=== PATIENT | female | born 1940 | race Caucasian/White ===

== ENCOUNTER → 2016-10-26 | Outpatient (REF) | payer MEDICARE, MEDICAID ==
[~2016-10-26] MED LIST: ATOR1TAB18 FT; CARD40TA FT; DIGO0.25 FT; DIOV80TA3 FT; DOCU5LIQ FT; ELIQ5TAB FT; FERR5MLUD FT; JEVILIQ32 FT; META28.35 FT; MIRA3350 FT; PROT1TAB2 FT; PROV100T4 FT; SENN8.6T17 FT; SYMB16INH INH; TUBE5INJ9 ID; TYLE325T5 FT; ZOLO20CO FT
[2016-10-26 10:09] LABS: MEAN CORPUSCULAR HEMOGLOBIN 30.6 pg (27.0-33.0); MEAN CORPUSCULAR HGB CONC 32.4 g/dl (32.0-36.5); MEAN CORPUSCULAR VOLUME 94.2 fl (80.0-96.0); RED CELL DISTRIBUTION WIDTH 14.8 % (11.5-14.5); WHITE BLOOD COUNT 7.3 K/mm3 (4.0-10.0)
[2016-10-26 10:47] LABS: ANION GAP 10 MEQ/L (8-16); BLOOD UREA NITROGEN 15 MG/DL (7-18); CALCIUM LEVEL 8.6 MG/DL (8.8-10.2); CARBON DIOXIDE LEVEL 29 MEQ/L (21-32); CHLORIDE LEVEL 96 MEQ/L (98-107); CREATININE FOR GFR 0.49 MG/DL (0.55-1.02); DIGOXIN LEVEL 0.8 NG/ML (0.5-2.0); GLOMERULAR FILTRATION RATE > 60.0 (>39); GLUCOSE, FASTING 100 MG/DL (83-110); POTASSIUM SERUM 4.7 MEQ/L (3.5-5.1); SODIUM LEVEL 135 MEQ/L (136-145)
== END ==
PROVIDERS: ATTEND Internal Medicine
DX: Z79.899 Other long term (current) drug therapy (principal); I48.91 Unspecified atrial fibrillation

== ENCOUNTER 2016-11-15 05:08 | Emergency (ER) | payer MEDICARE, MEDICAID ==
[~2016-11-15] VITALS: Ht 160 cm; Wt 74.8 kg
[2016-11-15 05:13] VITALS: BP 152/80
[2016-11-15] MEDS ORDERED: SORB70SO PO (18:46)
[2016-11-15] MEDS ORDERED: LASI20TA PO (18:46)
[2016-11-15] MEDS ORDERED: DULC10SU2 PR (18:46)
[2016-11-15] MEDS ORDERED: ELIQ5TAB PO (18:46)
[2016-11-15] MEDS ORDERED: POTA10LI10 PO (18:46)
[2016-11-15] MEDS ORDERED: MILKSUS PO (18:46)
== END 2016-11-15 05:44 | disposition home or self-care (01) ==
LOC: EDBD 05:08 → M ED 05:32
DX: K94.29 Other complications of gastrostomy (principal); Z86.73 Personal history of transient ischemic attack (TIA), and cerebral infarction without residual deficits; Z88.0 Allergy status to penicillin; Z88.5 Allergy status to narcotic agent; Z79.899 Other long term (current) drug therapy; Z79.51 Long term (current) use of inhaled steroids; Z79.01 Long term (current) use of anticoagulants

== ENCOUNTER 2016-11-15 18:18 | Emergency (ER) | payer MEDICARE, MEDICAID ==
[2016-11-15] MEDS ORDERED: ELIQ5TAB PO (18:46)
[2016-11-15] MEDS ORDERED: LASI20TA PO (18:46)
[2016-11-15] MEDS ORDERED: DULC10SU2 PR (18:46)
[2016-11-15] MEDS ORDERED: SORB70SO PO (18:46)
[2016-11-15] MEDS ORDERED: POTA10LI10 PO (18:46)
[2016-11-15] MEDS ORDERED: MILKSUS PO (18:46)
[2016-11-15 20:07] VITALS: BP 153/76
== END 2016-11-15 20:31 | disposition home or self-care (01) ==
LOC: EDBD 18:18 → M ED 19:39
DX: K94.29 Other complications of gastrostomy (principal); Z86.73 Personal history of transient ischemic attack (TIA), and cerebral infarction without residual deficits; Z88.0 Allergy status to penicillin; Z88.5 Allergy status to narcotic agent; Z79.51 Long term (current) use of inhaled steroids; Z79.899 Other long term (current) drug therapy; Z79.01 Long term (current) use of anticoagulants

== ENCOUNTER 2016-12-09 10:26 | Inpatient (IN) | payer MEDICARE, MEDICAID ==
[~2016-12-09] VITALS: Ht 157.5 cm; Wt 78.3 kg
[~2016-12-09 10:26] MED LIST changes: -ACEP650S PR; -CIPR500T89 PO; -METR500T10 PO; -NITR4TASL SL
--- NOTE | 2016-12-09 12:48 | REP ---
Chest two views HISTORY: Abdominal pain Comparison: 06/27/2015 The lungs are clear. The cardiac silhouette is enlarged. The pulmonary vasculature is normal in appearance. The bony structure is intact. IMPRESSION: Cardiomegaly. Signed by Anuj Cook MD 12/09/2016 12:39 P
[2016-12-09 13:04] LABS: BASO % 0.2 % (0.0-1.0); EOS # 0.1 K/mm3 (0.0-0.50); EOS % 0.7 % (0.0-3.0); LARGE UNSTAINED CELL # 0.2 K/mm3 (0.0-0.4); LYMPH # 1.6 K/mm3 (1.5-4.5); LYMPH % 8.3 % (24.0-44.0); MEAN CORPUSCULAR HEMOGLOBIN 32.1 pg (27.0-33.0); MEAN CORPUSCULAR HGB CONC 33.7 g/dl (32.0-36.5); MEAN CORPUSCULAR VOLUME 95.1 fl (80.0-96.0); MONO # 1.2 K/mm3 (0.0-0.8); MONO % 7.1 % (0.0-5.0); NEUTROPHILS # 14.5 K/mm3 (1.8-7.7); NEUTROPHILS % 82.8 % (36.0-66.0); PLATELET COUNT, AUTOMATED 218 k/mm3 (150-450); RED CELL DISTRIBUTION WIDTH 15.6 % (11.5-14.5); WHITE BLOOD COUNT 17.5 K/mm3 (4.0-10.0)
[2016-12-09 13:06] LABS: INR 1.42
[2016-12-09 14:39] LABS: ALBUMIN 2.9 GM/DL (3.2-5.2); ALBUMIN/GLOBULIN RATIO 0.94 (1.00-1.93); ALKALINE PHOSPHATASE 103 U/L (45-117); ALT/SGPT 29 U/L (12-78); ANION GAP 5 MEQ/L (8-16); AST/SGOT 20 U/L (15-37); BILIRUBIN,DIRECT 0.4 MG/DL (0.0-0.2); BILIRUBIN,TOTAL 1.2 MG/DL (0.2-1.0); BLOOD UREA NITROGEN 25 MG/DL (7-18); CALCIUM LEVEL 8.6 MG/DL (8.8-10.2); CARBON DIOXIDE LEVEL 33 MEQ/L (21-32); CHLORIDE LEVEL 96 MEQ/L (98-107); GLOMERULAR FILTRATION RATE > 60.0 (>39); GLUCOSE, FASTING 116 MG/DL (83-110); POTASSIUM SERUM 4.9 MEQ/L (3.5-5.1); SODIUM LEVEL 134 MEQ/L (136-145)
[2016-12-09] MEDS ORDERED: GASTROGRAFIN SOLUTION 30ML (Q9963) PO ONE ×2 (16:00→16:30)
[2016-12-09] MEDS ORDERED: ISOVUE-370 76% 100ML VIAL (Q9967) As Ordered ONE (17:23)
[2016-12-09] MEDS ORDERED: NS 500 ML IV ONE (18:45)
[2016-12-09] MEDS ORDERED: metroNIDAZOLE 500 MG in APPROPRIATE DILUENT 1 EA IV ONE (19:00)
[2016-12-09] MEDS ORDERED: CIPROFLOXACIN 400 MG in APPROPRIATE DILUENT 1 EA IV ONE (19:00)
[2016-12-09] MEDS ORDERED: ACEP650S PR (19:18)
[2016-12-09] MEDS ORDERED: NITR4TASL SL (19:18)
[2016-12-09] MEDS ORDERED: ACETAMINOPHEN TAB 650MG DOSE (2X325MG) PO PRN (19:45)
[2016-12-09] MEDS ORDERED: ONDANSETRON 4MG/2ML VIAL (J2405) IV PRN (19:45)
[2016-12-09] MEDS ORDERED: MOM 30ML SUSPENSION UDC FT PRN (20:00)
[2016-12-09] MEDS ORDERED: NITROGLYCERIN 0.4 MG SUBL TABLET SL PRN (20:00)
[2016-12-09] MEDS ORDERED: ACETAMINOPHEN 650 MG SUPP PR PRN (20:00)
[2016-12-09] MEDS ORDERED: BISACODYL 10 MG SUPP PR PRN (20:00)
[2016-12-09] MEDS: NS 1,000 ML IV SCH (20:58)
[2016-12-09 21:35] VITALS: BP 130/77
--- NOTE | 2016-12-09 21:47 | HPE ---
DATE OF ADMISSION: 12/09/2016 PRIMARY CARE PHYSICIAN: Tigre Hammond Jr., MD CODE STATUS: DO NOT RESUSCITATE/DO NOT INTUBATE. SURGEON CONSULTED: Rigoberto Bee MD CHIEF COMPLAINT: Abdominal pain as well as vomiting and diarrhea. HISTORY OF PRESENT ILLNESS: Ms. Story is a 76-year-old female with multiple past medical histories who is a resident of [facility] who was transferred to the emergency room (ER) due to experiencing abdominal pain as well as one episode of vomiting and several episodes of diarrhea. Due to stroke in 2014, patient has aphasia and cannot communicate, however patient's daughter was present in the room who expressed that she received a phone call this morning regarding her mother having one episode of vomiting and several episodes of diarrhea since last night. Patient was transferred to [facility] ER where she received one dose of Cipro and Flagyl and 500 mL bolus normal saline. Due to aphasia and unavailability of the [facility] staff, we have limited understanding about history of present illness at this time. ALLERGIES: PENICILLIN and CODEINE. PAST MEDICAL HISTORY: 1. Unstable angina. 2. Hyperkalemia. 3. Mild volume overload. 4. Atrial fibrillation with rapid ventricular response. 5. Gastroesophageal reflux disease. 6. Anemia. 7. Hypertension. 8. Hyperlipidemia. 9. Obstructive sleep apnea. 10. History of congestive heart failure. 11. 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 PAST SURGICAL HISTORY: Gastrostomy (G) tube placement. HOME MEDICATIONS: Acetaminophen 650 when necessary pain Eliquis 5 mg FT twice a day Dulcolax 10 mg when necessary constipation Ciprofloxacin 500 mg by mouth daily 6 day Digoxin 0.25 mg FT daily Cardizem 30 mg FT 4 times a day Lasix 20 mg twice a day Jevity 1.5Cal/fiber Metronidazole 500 mg by mouth every 8 hours 6 days Milk of magnesia [address] daily when necessary constipation Nitrostat 0.4 mg SL every 5 MP when necessary chest pain. Potassium chloride 20 mEq FT daily at bedtime Sorbitol 15 mL FT daily Diovan 80 mg FT daily FAMILY HISTORY: Patient has four children, two sons and two daughters who are healthy for their age, however one of the daughters has Graves' disease. Patient had seven brothers and sisters, one of the sisters due to breast cancer, and the other ones due to stroke and heart diseases. SOCIAL HISTORY: Patient is a resident of [facility]. After episode of CVA, was transferred to [facility] in June 2015. According to the daughter, patient did not have history of illicit drug use. Patient also does not have history of tobacco use or alcohol use. Patient had one dog, however the daughter is taking care of her dog at this moment. Patient has not traveled outside of the [place]. REVIEW OF SYSTEMS: Review of systems cannot be obtained since patient has aphasia due to CVA. Also patient is not cooperative. PHYSICAL EXAMINATION: VITAL SIGNS: Temperature 99.1, pulse 100, respiratory rate 18, blood pressure 115/75, pulse oximetry 97% on room air. Total output 150 mL. GENERAL APPEARANCE: Patient was awake, alert, however patient has aphasia due to CVA and cannot communicate. Patient is also uncooperative. HEENT: Normocephalic, atraumatic. Pupils are equal. Oral mucous moist. NECK: Soft, supple. No jugular venous distention (JVD). HEART: Irregularly irregular. LUNGS: Patient has scattered rhonchi at the base of the lung. Good air movement. ABDOMEN: Soft. Patient has tenderness to palpation in the right upper quadrant. Taylor's sign is positive. Positive bowel sounds in all quadrants. Patient has G-tube in the mid upper abdominal quadrant and no erythema, swelling or bleeding at the site of G-tube was noticed EXTREMITIES: Patient has pitting edema in both lower extremities. +2 pulses in both lower extremities. However, due to not cooperating cannot evaluate the strength of both upper and lower extremities. NEUROLOGIC: Due to patient is not cooperative, we cannot evaluate patient's cranial nerves. LABORATORY DATA: White blood cells 17.5, red blood cells 4.65, hemoglobin 14.5, hematocrit 42.7, MCV 95.1, MCH 32.1, MCHC 33.7, RDW 15.6, platelet count 218, neutrophil percentage 82.8, lymphocyte percentage 8.3, monocyte percentage 7.1, eosinophil percentage 0.7, basophil percentage 0.2, leukocyte percentage 0.1. PT 17.5, INR 1.42. aPTT 35. Sodium 134, potassium 4.9, chloride 96, carbon dioxide 33, anion gap 5, BUN 25, creatinine 0.7, glomerular filtration rate more than 60, fasting glucose 116, lactic acid 1.7, calcium 8.6, total bilirubin 1.2, direct bilirubin 0.4, AST 20, ALT 29, alkaline phosphatase 103, total creatine kinase 27, CK-MB 1.3, CK relative index 4.81, troponin I is less than 0.02, total protein 6, albumin 2.9, lipase 131. Urinalysis pending. Digoxin level 1. IMAGING STUDIES: Chest xray shows cardiomegaly and pulmonary vasculature is normal in appearance. CT abdomen and pelvis with IV and oral contrast indicated gastrostomy feeding tube by the anterior abdominal wall into the stomach with balloon inflated and catheter tip within the joint gastric antrum or proximal duodenum. Small bowel loops are not abnormally dilated and the stomach is not distended. Oral contrast from the tube is passed through the small bowel loop into the right colon and the proximal loop now only fluid-filled. Mild hepatomegaly without biliary dilatation or adjacent ascites. No hepatic mass. 3 cm as a calcified gallstone in the fundus and the gallbladder, unchanged. Minor inflammatory changes about the cecum without mass and with diverticulosis of distal left colon and sigmoid without diverticulitis. Moderate retention of stool in the rectosigmoid vault. No other significant or acute finding. No abdominal wall hernia. ASSESSMENT AND PLAN: 1. Abdominal pain. This is possibly secondary to cholelithiasis versus colitis. CT of abdomen and pelvis indicated a calcified stone in the fundus of the gallbladder. I have consulted Dr. Bee. Due to aphasia caused by stroke , patient has a gastrostomy (G) tube and uses Jevity, however at this I will hold feeding due to abdominal pain and have his start patient on IV fluid. 2. Diarrhea. This is possibly secondary to infection therefore I have ordered gastrointestinal (GI) panel which is pending at this time. Patient is on IV antibiotics. 3. History of CVA. Patient has a gastrostomy (G) tube and is on Jevity, however we have hold the feeding at this time and started patient on IV fluid. 4. Atrial fibrillation. Patient's heart rate is controlled. Patient was on Eliquis, however we have stopped Eliquis due to possibility of procedure. We will continue patient on digoxin and diltiazem. 5. Hypertension. Patient is on valsartan and Lasix. 6. History of anemia. At this time patient is stable. 7. Gastroesophageal reflux disease (GERD). Will continue patient on Protonix IV. 8. Leukocytosis. This is possibly secondary to infection versus stress. At this time patient is on IV antibiotics. 9. Deep venous thrombosis (DVT) prophylaxis. Patient is on thromboembolism deterrents (TEDs) and sequentials. 10. History of hyperkalemia. Patient is stable at this time. 11. diastolic congestive heart failure. Patient had an echocardiogram which was done on 06/24/2015 with ejection fraction of 70%, however it shows mild dilatation of the aortic root of both left of the sinus of Valsalva and proximal ascending aorta. Patient also has mild mitral annular calcification and moderate left atrial dilatations. I will continue patient on valsartan and diltiazem. My preceptor for this patient encounter was Dr. Yosef Lees. The preceptor was physically present in the building during the encounter and was fully available. As needed, all aspects of the patient interview, examination, medical decision making process, and medical care plan development were reviewed and approved by the preceptor. The preceptor is aware and concurs with the plan as stated in the body of this note and will attest to such by her cosignature. RANULFO
[2016-12-09 23:46] VITALS: BP 103/57
[2016-12-09] MEDS: PANTOPRAZOLE 40MG INJ (PROTONIX) (C9113) IV SCH (23:53)
[2016-12-10 05:15] VITALS: BP 122/72
[2016-12-10] MEDS: metroNIDAZOLE 500 MG in APPROPRIATE DILUENT 1 EA IV SCH ×3 (05:21→22:33)
--- NOTE | 2016-12-10 05:53 | REP ---
CT ABDOMEN AND PELVIS WITH IV AND ORAL CONTRAST: 12/09/2016. Clinical history: Abdominal pain, vomiting. Perfect [employer] Machine Operator film shows the patients PEG tube and bilateral total hip arthroplasties as before. Technique: Oral Gastrografin mixture of 10 ml in 290 ml of flavored water per our bowel contrast protocol and a bolus of 100 ml Isovue 370 and scanning through the abdomen and pelvis. Coronal and sagittal reconstructions were provided. Axial orthopedic metal artifact reduction algorithm also used. Findings: CT abdomen/pelvis: There is some subsegmental atelectasis right lower lobe and dependent atelectasis deep sulci bilaterally. No effusion, nodule, infiltrate or mass. Heart mildly enlarged. There is left atrial and ventricular enlargement. There are coronary calcifications. No pericardial thickening or effusion. Gastrostomy feeding tube via the anterior abdominal wall into the stomach. Balloon inflated in the antrum or duodenal bulb/second portion duodenum. No visible hiatal hernia. I see mild hepatomegaly with an 18.5 cm vertical diameter of the liver in the midclavicular line. There is no splenomegaly or focal splenic lesion. No intrahepatic biliary dilatation or adjacent ascites. Gallbladder shows a calcified stone in its fundus up to 3 cm. Pancreas shows normal common duct in its head where the pancreatic duct is not abnormally dilated. No definite mass or peripancreatic adenopathy/fluid. The aorta has atherosclerotic calcifications and tortuosity without aneurysm. No periaortic or other retroperitoneal pathologic sized lymphadenopathy. Small bowel loops are not abnormally dilated and show fluid or oral contrast within. No wall thickening, mass or infiltration of the mesentery. There is no evidence for perforation or free air on lung window review of all CT slice levels. No generalized ascites. There is a small amount of fluid in the lateral coronal fascia adjacent to the right colon and inferior tip of the liver but no generalized ascites. There is diverticulosis of the left colon distally without diverticulitis. Small amount of thickening of the wall of the cecum noted which may reflect some mild inflammatory change. However the terminal ileum is normal in caliber and without inflammatory changes. Extensive distal left colonic and proximal sigmoid diverticulosis without diverticulitis. Moderate constipation in the rectosigmoid vault. No pelvic adenopathy or free fluid. Degenerative changes in the spine and lower lumbar facets noted unchanged. No compression deformities. The visualized ribs are intact. The patient has had bilateral total hip arthroplasties as seen on the previous CT. I see no ventral or inguinal hernia. Bladder is adequately filled. There is no bladder wall mass or definite stone although some spray artifact still limits portions of the posterior bladder evaluation. There is no pelvic mass. Impression: 1. There is a gastrostomy feeding tube by the anterior abdominal wall into the stomach with a balloon inflated at the catheter tip within region of the gastric antrum or proximal duodenum. Small bowel loops are not abnormally dilated and the stomach is not distended. Oral contrast from that tube is passed throughout small bowel loops into the right colon with the proximal loops now only fluid-filled. 2. Mild hepatomegaly without biliary dilatation or adjacent ascites. No hepatic mass. 3. A 3 cm partially calcified gallstone in the fundus of the gallbladder, unchanged. 4. Minor inflammatory changes about the cecum without mass and with diverticulosis of the distal left colon and sigmoid without diverticulitis. Moderate retention of stool in the rectosigmoid vault. No other significant or acute finding. There are bilateral total hip arthroplasties. No abdominal wall hernia. Signed by Gary Rodriguez MD 12/10/2016 04:37 P
[2016-12-10 07:02] LABS: BASO % 0.2 % (0.0-1.0); EOS # 0.2 K/mm3 (0.0-0.50); EOS % 1.3 % (0.0-3.0); LARGE UNSTAINED CELL # 0.2 K/mm3 (0.0-0.4); LARGE UNSTAINED CELL % 1.4 % (0.0-4.0); LYMPH # 1.4 K/mm3 (1.5-4.5); LYMPH % 9.7 % (24.0-44.0); MEAN CORPUSCULAR HEMOGLOBIN 31.5 pg (27.0-33.0); MEAN CORPUSCULAR VOLUME 95.4 fl (80.0-96.0); MONO # 0.7 K/mm3 (0.0-0.8); NEUTROPHILS % 81.4 % (36.0-66.0); PLATELET COUNT, AUTOMATED 186 k/mm3 (150-450); RED CELL DISTRIBUTION WIDTH 15.5 % (11.5-14.5); WHITE BLOOD COUNT 12.3 K/mm3 (4.0-10.0)
[2016-12-10 07:37] LABS: ALBUMIN 2.4 GM/DL (3.2-5.2); ALBUMIN/GLOBULIN RATIO 0.77 (1.00-1.93); ALKALINE PHOSPHATASE 83 U/L (45-117); ALT/SGPT 22 U/L (12-78); ANION GAP 6 MEQ/L (8-16); AST/SGOT 12 U/L (15-37); BLOOD UREA NITROGEN 23 MG/DL (7-18); CALCIUM LEVEL 8.2 MG/DL (8.8-10.2); CARBON DIOXIDE LEVEL 30 MEQ/L (21-32); CHLORIDE LEVEL 98 MEQ/L (98-107); CREATININE FOR GFR 0.63 MG/DL (0.55-1.02); GLOMERULAR FILTRATION RATE > 60.0 (>39); GLUCOSE, FASTING 88 MG/DL (83-110); POTASSIUM SERUM 4.5 MEQ/L (3.5-5.1); SODIUM LEVEL 134 MEQ/L (136-145); TOTAL PROTEIN 5.5 GM/DL (6.4-8.2)
[2016-12-10 08:00] VITALS: BP 114/58
[2016-12-10] MEDS: VALSARTAN 80 MG TAB (DIOVAN) GT SCH (08:11)
[2016-12-10] MEDS: SORBITOL 70% 30ML UNIT DOSE CUP GT SCH (08:12)
[2016-12-10] MEDS: FUROSEMIDE 20 MG TAB PEG SCH ×2 (08:12→16:47)
[2016-12-10] MEDS: DIGOXIN 0.25 MG TAB GT SCH (08:12)
[2016-12-10] MEDS: CIPROFLOXACIN 400 MG in APPROPRIATE DILUENT 1 EA IV SCH ×2 (08:12→20:15)
--- NOTE | 2016-12-10 11:01 | ECGEPIP ---
Stationary ECG Study [facility] - ED Test Date: 2016-12-09 Pat Name: TAMIKO DELCID Department: Room: - Gender: F Adjunct Teacher: darci : 1940 Requested By: BRINA Smith Order Number: [id number] Reading MD: Taryn Willoughby Measurements Intervals [place] Rate: 101 P: NM: 0 QRS: 40 QRSD: 86 T: 28 QT: 316 QTc: 411 Interpretive Statements ATRIAL FIBRILLATION WITH RAPID VENTRICULAR RESPONSE MINIMAL ST DEPRESSION ABNORMAL RHYTHM ECG SIMILAR 06/24/15 Electronically Signed On 12-10-2016 11:01:26 EDT by Taryn Willoughby
[2016-12-10 12:00] VITALS: BP 94/62
[2016-12-10] MEDS: NS 1,000 ML IV SCH (12:31)
--- NOTE | 2016-12-10 15:29 | IPNPDOC ---
Subjective Date Seen The patient was seen on 12/10/16. Subjective Chief Complaint/HPI The patient is a 76-year-old female admitted with a reason for visit of Abdominal Pain. Other systems Unable to reliably obtain secondary to patient's baseline clinical condition of aphasia Objective Physical Examination General Exam: Positive: No Acute Distress, Other (patient resting comfortably, in no acute distress, baseline nonverbal, follows some commands.) ENT Exam: Positive: Atraumatic, Mucous membr. moist/pink Neck Exam: Negative: JVD Chest Exam: Positive: Clear to auscultation, Normal air movement Heart Exam: Positive: Rate Normal, Normal S1, Normal S2 Abdomen Exam: Positive: Soft, Other (+G Tube), Negative: Tenderness Extremity Exam: Positive: Swelling (2+ pitting edema in the lower extremities bilaterally), Negative: Tenderness Assessment /Plan Plan/VTE VTE Prophylaxis Ordered?: Yes Plan RUQ Abdominal pain, Fever, Leukocytosis possibly 2/2 Acute Cholecystitis, Mild Cecitis. CT Scan of the Abd noted Patient on IVF, Cipro and Flagyl Patient afebrile this AM, WBC trending downward, Lactic Acid level wnl Surgery on board--appreciate their input The patient's family is currently considering surgical options at this time Patient has a PEG Tube for feeding, will follow up with surgical recommendations for resumption of diet Atrial fibrillation, rate controlled Will hold Eliquis for possible surgery Cont digoxin and diltiazem. Hypertension, stable Cont valsartan and Lasix. Diastolic Congestive Heart Failure Patient appears euvolemic at this time Cont Lasix, Valsartan as ordered History of CVA with Right Sided Hemiparesis, Aphasia Gastroesophageal reflux disease (GERD) On Protonix Deep venous thrombosis (DVT) prophylaxis Heparin SC Dispositon: Will follow up with the patient's family regarding their decision on surgical options vs medical management. VS, I&O, 24H, Fishbone Vital Signs/I&O Vital Signs Date Time Temp Pulse Resp B/P (MAP) Pulse Ox O2 Delivery O2 Flow Rate FiO2 12/10/16 12:40 94 94/62 12/10/16 12:00 98.0 18 97 Nasal Cannula 2.0 I&O- Last 24 Hours up to 6 AM 12/10/16 05:59 Intake Total 700 ml Output Total 150 ml Balance 550 ml Laboratory Data 24H LABS Laboratory Tests 2 12/09/16 19:55: Urine Appearance HAZY, Urine Color PILI, Urine pH 5.0, Urine Specific [place] 1.045, Urine Protein NEGATIVE, Urine Glucose (UA) NEGATIVE, Urine Ketones NEGATIVE, Urine Urobilinogen 2.0H, Urine Bilirubin NEGATIVE, Urine Leukocyte Esterase NEGATIVE, Urine Blood NEGATIVE, Urine Nitrite NEGATIVE, Urine WBC (Auto ) 2, Urine RBC (Auto) 3, Urine Hyaline Casts (Auto) 1, Urine Bacteria (Auto) NEGATIVE, Urine Squamous Epithelial Cells 0, Urine Mucus (Auto) SMALL, Urine Sperm (Auto) 12/09/16 20:37: Total Creatine Kinase 19L, Creatine Kinase MB 1.1, Creatine Kinase MB Relative Index 5.78H, Troponin I < 0.02 12/10/16 06:44: Total Creatine Kinase 15L, Creatine Kinase MB 1.2, Creatine Kinase MB Relative Index 8.00H, Troponin I < 0.02, White Blood Count 12.3H, Red Blood Count 4.26, Hemoglobin 13.4, Hematocrit 40.6, Mean Corpuscular Volume 95.4, Mean Corpuscular Hemoglobin 31.5, Mean Corpuscular Hemoglobin Concent 33.0, Red Cell Distribution Width 15.5H, Platelet Count 186, Neutrophils (%) (Auto) 81.4H, Lymphocytes (%) (Auto) 9.7L, Monocytes (%) (Auto) 6.0H, Eosinophils (%) (Auto) 1.3, Basophils (%) (Auto) 0.2, Neutrophils # (Auto) 10.0H, Lymphocytes # (Auto) 1.4L, Monocytes # (Auto) 0.7, Eosinophils # (Auto) 0.2, Basophils # (Auto) 0.0, Large Unclassified Cells % 1.4, Large Unclassified Cells # 0.2, Anion Gap 6L, Glomerular Filtration Rate > 60.0, Blood Urea Nitrogen 23H, Creatinine 0.63, Sodium Level 134L, Potassium Level 4.5, Chloride Level 98, Carbon Dioxide Level 30, Calcium Level 8.2L, Aspartate Amino Transf (AST/SGOT) 12L, Alanine Aminotransferase (ALT/SGPT) 22, Alkaline Phosphatase 83, Total Bilirubin 1.0, Total Protein 5.5L, Albumin 2.4L, Magnesium Level 2.0, Albumin/Globulin Ratio 0.77L CBC/BMP Laboratory Tests 12/10/16 06:44 Red Blood Count 4.26, Mean Corpuscular Volume 95.4, Mean Corpuscular Hemoglobin 31.5, Mean Corpuscular Hemoglobin Concent 33.0, Red Cell Distribution Width 15.5 H, Neutrophils (%) (Auto) 81.4 H, Lymphocytes (%) (Auto) 9.7 L, Monocytes ( %) (Auto) 6.0 H, Eosinophils (%) (Auto) 1.3, Basophils (%) (Auto) 0.2, Neutrophils # (Auto) 10.0 H, Lymphocytes # (Auto) 1.4 L, Monocytes # (Auto) 0.7 , Eosinophils # (Auto) 0.2, Basophils # (Auto) 0.0, Calcium Level 8.2 L, Aspartate Amino Transf (AST/SGOT) 12 L, Alanine Aminotransferase (ALT/SGPT) 22, Total Creatine Kinase 15 L, Alkaline Phosphatase 83, Total Bilirubin 1.0, Total Protein 5.5 L, Albumin 2.4 L Microbiology Microbiology 12/09/16 Blood Culture - Preliminary, Resulted No growth after 24 hours . All specim... 12/09/16 Blood Culture - Preliminary, Resulted No growth after 24 hours . All specim... 12/10/16 Gastrointestinal Tract Panel (PCR) - Final, Complete 12/09/16 Urine Culture, Received Pending ALFREDO DOVE MD December 10, 2016 15:29
[2016-12-10 16:00] VITALS: BP 91/55
[2016-12-10 20:00] VITALS: BP 110/61
[2016-12-10] MEDS: PANTOPRAZOLE 40MG INJ (PROTONIX) (C9113) IV SCH (22:33)
[2016-12-10 23:59] VITALS: BP 103/52
[2016-12-11 04:00] VITALS: BP 112/61
[2016-12-11] MEDS: metroNIDAZOLE 500 MG in APPROPRIATE DILUENT 1 EA IV SCH ×3 (04:42→21:33)
[2016-12-11 05:48] LABS: BASO % 0.1 % (0.0-1.0); EOS # 0.1 K/mm3 (0.0-0.50); EOS % 1.2 % (0.0-3.0); LARGE UNSTAINED CELL # 0.1 K/mm3 (0.0-0.4); LARGE UNSTAINED CELL % 1.7 % (0.0-4.0); LYMPH # 1.3 K/mm3 (1.5-4.5); LYMPH % 13.3 % (24.0-44.0); MEAN CORPUSCULAR HEMOGLOBIN 31.9 pg (27.0-33.0); MEAN CORPUSCULAR VOLUME 96.7 fl (80.0-96.0); MONO # 0.6 K/mm3 (0.0-0.8); MONO % 7.7 % (0.0-5.0); NEUTROPHILS # 6.4 K/mm3 (1.8-7.7); NEUTROPHILS % 76.1 % (36.0-66.0); PLATELET COUNT, AUTOMATED 181 k/mm3 (150-450); RED CELL DISTRIBUTION WIDTH 15.3 % (11.5-14.5); WHITE BLOOD COUNT 8.4 K/mm3 (4.0-10.0)
[2016-12-11 06:16] LABS: ALBUMIN 2.3 GM/DL (3.2-5.2); ALBUMIN/GLOBULIN RATIO 0.74 (1.00-1.93); ALKALINE PHOSPHATASE 75 U/L (45-117); ALT/SGPT 21 U/L (12-78); ANION GAP 9 MEQ/L (8-16); AST/SGOT 14 U/L (15-37); BILIRUBIN,TOTAL 0.6 MG/DL (0.2-1.0); BLOOD UREA NITROGEN 17 MG/DL (7-18); CALCIUM LEVEL 7.9 MG/DL (8.8-10.2); CARBON DIOXIDE LEVEL 28 MEQ/L (21-32); CHLORIDE LEVEL 101 MEQ/L (98-107); CREATININE FOR GFR 0.55 MG/DL (0.55-1.02); GLOMERULAR FILTRATION RATE > 60.0 (>39); GLUCOSE, FASTING 80 MG/DL (83-110); POTASSIUM SERUM 4.2 MEQ/L (3.5-5.1); SODIUM LEVEL 138 MEQ/L (136-145); TOTAL PROTEIN 5.4 GM/DL (6.4-8.2)
[2016-12-11 08:00] VITALS: BP 107/56
[2016-12-11] MEDS: CIPROFLOXACIN 400 MG in APPROPRIATE DILUENT 1 EA IV SCH ×2 (08:45→20:00)
[2016-12-11] MEDS: FUROSEMIDE 20 MG TAB PEG SCH ×2 (08:46→17:31)
[2016-12-11] MEDS: SORBITOL 70% 30ML UNIT DOSE CUP GT SCH (08:46)
[2016-12-11] MEDS: DIGOXIN 0.25 MG TAB GT SCH (08:47)
[2016-12-11] MEDS: VALSARTAN 80 MG TAB (DIOVAN) GT SCH (08:47)
[2016-12-11 12:00] VITALS: BP 107/52
--- NOTE | 2016-12-11 12:19 | IPNPDOC ---
Subjective Date Seen The patient was seen on 12/11/16. Subjective Chief Complaint/HPI The patient is a 76-year-old female admitted with a reason for visit of Abdominal Pain. Other systems Unable to reliably obtain 2/2 clinical condition. Objective Physical Examination General Exam: Positive: No Acute Distress, Other (patient resting comfortably, in no acute distress, baseline nonverbal, follows some commands.) ENT Exam: Positive: Atraumatic, Mucous membr. moist/pink Neck Exam: Negative: JVD Chest Exam: Positive: Clear to auscultation, Normal air movement Heart Exam: Positive: Rate Normal, Normal S1, Normal S2 Abdomen Exam: Positive: Soft, Other (+G Tube), Negative: Tenderness Extremity Exam: Positive: Swelling (2+ pitting edema in the lower extremities bilaterally), Negative: Tenderness Assessment /Plan Plan/VTE VTE Prophylaxis Ordered?: Yes Plan RUQ Abdominal pain, Fever, Leukocytosis possibly 2/2 Acute Cholecystitis, Mild Cecitis. CT Scan of the Abd noted Patient on IVF, Cipro and Flagyl Patient afebrile this AM, WBC wnl at this time, Lactic Acid level wnl Surgery on board--appreciate their input The patient's family is currently considering surgical options at this time-- and would like to observe the patient with medical management over the weekend Patient has a PEG Tube for feeding, however the patient has been having diarrhea over night after tube feeding and is still having persist RUQ pain. We will hold tube feeds and provide IVF hydration if this continues. Atrial fibrillation, rate controlled Will hold Eliquis for possible surgery Cont digoxin and diltiazem. Hypertension, stable Cont valsartan and Lasix. Diastolic Congestive Heart Failure Patient appears euvolemic at this time Cont Lasix, Valsartan as ordered History of CVA with Right Sided Hemiparesis, Aphasia Gastroesophageal reflux disease (GERD) On Protonix Deep venous thrombosis (DVT) prophylaxis Heparin SC Dispositon: Will follow up with the patient's clinical condition moving forward and the patient's families decision on possible surgery for Tuesday. VS, I&O, 24H, Fishbone Vital Signs/I&O Vital Signs Date Time Temp Pulse Resp B/P (MAP) Pulse Ox O2 Delivery O2 Flow Rate FiO2 12/11/16 08:47 107/56 12/11/16 08:47 94 12/11/16 08:00 Nasal Cannula 2.0 12/11/16 08:00 96.6 19 95 I&O- Last 24 Hours up to 6 AM 12/11/16 05:59 Intake Total 1335 ml Balance 1335 ml Laboratory Data 24H LABS Laboratory Tests 2 12/11/16 05:01: White Blood Count 8.4, Red Blood Count 3.98L, Hemoglobin 12.7, Hematocrit 38.5, Mean Corpuscular Volume 96.7H, Mean Corpuscular Hemoglobin 31.9, Mean Corpuscular Hemoglobin Concent 33.0, Red Cell Distribution Width 15.3H, Platelet Count 181, Neutrophils (%) (Auto) 76.1H, Lymphocytes (%) (Auto) 13.3L, Monocytes (%) (Auto) 7.7H, Eosinophils (%) (Auto) 1.2, Basophils (%) (Auto) 0.1 , Neutrophils # (Auto) 6.4, Lymphocytes # (Auto) 1.3L, Monocytes # (Auto) 0.6, Eosinophils # (Auto) 0.1, Basophils # (Auto) 0.0, Large Unclassified Cells % 1.7 , Large Unclassified Cells # 0.1, Anion Gap 9, Glomerular Filtration Rate > 60.0 , Blood Urea Nitrogen 17, Creatinine 0.55, Sodium Level 138, Potassium Level 4.2 , Chloride Level 101, Carbon Dioxide Level 28, Calcium Level 7.9L, Aspartate Amino Transf (AST/SGOT) 14L, Alanine Aminotransferase (ALT/SGPT) 21, Alkaline Phosphatase 75, Total Bilirubin 0.6, Total Protein 5.4L, Albumin 2.3L, Magnesium Level 2.0, Albumin/Globulin Ratio 0.74L CBC/BMP Laboratory Tests 12/11/16 05:01 Red Blood Count 3.98 L, Mean Corpuscular Volume 96.7 H, Mean Corpuscular Hemoglobin 31.9, Mean Corpuscular Hemoglobin Concent 33.0, Red Cell Distribution Width 15.3 H, Neutrophils (%) (Auto) 76.1 H, Lymphocytes (%) (Auto ) 13.3 L, Monocytes (%) (Auto) 7.7 H, Eosinophils (%) (Auto) 1.2, Basophils (%) (Auto) 0.1, Neutrophils # (Auto) 6.4, Lymphocytes # (Auto) 1.3 L, Monocytes # ( Auto) 0.6, Eosinophils # (Auto) 0.1, Basophils # (Auto) 0.0, Calcium Level 7.9 L , Aspartate Amino Transf (AST/SGOT) 14 L, Alanine Aminotransferase (ALT/SGPT) 21 , Alkaline Phosphatase 75, Total Bilirubin 0.6, Total Protein 5.4 L, Albumin 2.3 L Microbiology Microbiology 12/09/16 Blood Culture - Preliminary, Resulted No growth after 24 hours . All specim... 12/09/16 Blood Culture - Preliminary, Resulted No growth after 24 hours . All specim... 12/10/16 Gastrointestinal Tract Panel (PCR) - Final, Complete 12/09/16 Urine Culture - Final, Complete ALFREDO DOVE MD December 11, 2016 12:19
[2016-12-11] MEDS: D5W/0.45% SODIUM CHLORIDE 1,000 ML IV SCH (13:15)
[2016-12-11 16:00] VITALS: BP 119/69
[2016-12-11 20:00] VITALS: BP 119/61
[2016-12-11] MEDS: PANTOPRAZOLE 40MG INJ (PROTONIX) (C9113) IV SCH (21:33)
[2016-12-11 23:59] VITALS: BP 114/67
[2016-12-12 04:00] VITALS: BP 130/74
[2016-12-12] MEDS: metroNIDAZOLE 500 MG in APPROPRIATE DILUENT 1 EA IV SCH ×3 (04:07→21:22)
[2016-12-12 05:53] LABS: BASO % 0.2 % (0.0-1.0); EOS # 0.1 K/mm3 (0.0-0.50); EOS % 1.8 % (0.0-3.0); LARGE UNSTAINED CELL # 0.2 K/mm3 (0.0-0.4); LARGE UNSTAINED CELL % 2.3 % (0.0-4.0); LYMPH % 14.8 % (24.0-44.0); MEAN CORPUSCULAR HGB CONC 33.1 g/dl (32.0-36.5); MEAN CORPUSCULAR VOLUME 99.7 fl (80.0-96.0); MONO # 0.6 K/mm3 (0.0-0.8); MONO % 9.4 % (0.0-5.0); NEUTROPHILS # 4.9 K/mm3 (1.8-7.7); NEUTROPHILS % 71.5 % (36.0-66.0); PLATELET COUNT, AUTOMATED 199 k/mm3 (150-450); RED CELL DISTRIBUTION WIDTH 15.1 % (11.5-14.5); WHITE BLOOD COUNT 6.8 K/mm3 (4.0-10.0)
[2016-12-12 06:25] LABS: ALBUMIN 2.3 GM/DL (3.2-5.2); ALBUMIN/GLOBULIN RATIO 0.74 (1.00-1.93); ALKALINE PHOSPHATASE 70 U/L (45-117); ALT/SGPT 17 U/L (12-78); ANION GAP 6 MEQ/L (8-16); AST/SGOT 13 U/L (15-37); BILIRUBIN,TOTAL 0.4 MG/DL (0.2-1.0); BLOOD UREA NITROGEN 10 MG/DL (7-18); CALCIUM LEVEL 7.8 MG/DL (8.8-10.2); CARBON DIOXIDE LEVEL 28 MEQ/L (21-32); CHLORIDE LEVEL 103 MEQ/L (98-107); CREATININE FOR GFR 0.49 MG/DL (0.55-1.02); GLOMERULAR FILTRATION RATE > 60.0 (>39); GLUCOSE, FASTING 106 MG/DL (83-110); MAGNESIUM LEVEL 1.8 MG/DL (1.8-2.4); POTASSIUM SERUM 3.7 MEQ/L (3.5-5.1); SODIUM LEVEL 137 MEQ/L (136-145); TOTAL PROTEIN 5.4 GM/DL (6.4-8.2)
[2016-12-12 07:15] VITALS: BP 139/73
[2016-12-12] MEDS: CIPROFLOXACIN 400 MG in APPROPRIATE DILUENT 1 EA IV SCH ×2 (08:48→20:11)
[2016-12-12] MEDS: DIGOXIN 0.25 MG TAB GT SCH (08:49)
[2016-12-12] MEDS: SORBITOL 70% 30ML UNIT DOSE CUP GT SCH (08:49)
[2016-12-12] MEDS: VALSARTAN 80 MG TAB (DIOVAN) GT SCH (08:49)
[2016-12-12] MEDS: FUROSEMIDE 20 MG TAB PEG SCH ×2 (08:49→17:23)
[2016-12-12] MEDS: D5W/0.45% SODIUM CHLORIDE 1,000 ML IV SCH (08:50)
[2016-12-12 12:00] VITALS: BP 118/63
--- NOTE | 2016-12-12 14:08 | IPNPDOC ---
Subjective Date Seen The patient was seen on 12/12/16. Subjective Chief Complaint/HPI The patient is a 76-year-old female admitted with a reason for visit of Abdominal Pain. Other systems Unable to reliably obtain 2/2 clinical condition Objective Physical Examination General Exam: Positive: No Acute Distress, Other (patient resting comfortably, in no acute distress, baseline nonverbal, follows some commands.) ENT Exam: Positive: Atraumatic, Mucous membr. moist/pink Neck Exam: Negative: JVD Chest Exam: Positive: Clear to auscultation, Normal air movement Heart Exam: Positive: Rate Normal, Normal S1, Normal S2 Abdomen Exam: Positive: Soft, Other (+G Tube), Negative: Tenderness Extremity Exam: Positive: Swelling (2+ pitting edema in the lower extremities bilaterally), Negative: Tenderness Assessment /Plan Plan/VTE VTE Prophylaxis Ordered?: Yes Plan RUQ Abdominal pain, Fever, Leukocytosis possibly 2/2 Acute Cholecystitis, Mild Cecitis in patient with a History of PEG Tube CT Scan of the Abd noted Patient on IVF, Cipro and Flagyl Patient afebrile this AM, WBC wnl at this time, Lactic Acid level wnl Surgery on board--appreciate their input--It does appear that the patient's G tube may have been dislodged, this has been adjusted this AM by the surgical team We will restart the patient's tube feeds and monitor the patient's progress Diarrhea, improving GI Panel negative for acute infection Atrial fibrillation, rate controlled Will hold Eliquis for possible surgery Cont digoxin and diltiazem. Hypertension, stable Cont valsartan and Lasix. Diastolic Congestive Heart Failure Patient appears euvolemic at this time Cont Lasix, Valsartan as ordered History of CVA with Right Sided Hemiparesis, Aphasia Gastroesophageal reflux disease (GERD) On Protonix Deep venous thrombosis (DVT) prophylaxis Heparin SC Dispositon: Will follow up with the patient's clinical condition moving forward and the patient's families decision on possible surgery for Tuesday. VS, I&O, 24H, Fishbone Vital Signs/I&O Vital Signs Date Time Temp Pulse Resp B/P (MAP) Pulse Ox O2 Delivery O2 Flow Rate FiO2 12/12/16 13:23 91 118/63 12/12/16 12:00 97.9 20 96 Room Air 12/12/16 07:25 2.0 I&O- Last 24 Hours up to 6 AM 12/12/16 05:59 Intake Total 700 ml Output Total 0 ml Balance 700 ml Laboratory Data 24H LABS Laboratory Tests 2 12/12/16 04:48: White Blood Count 6.8, Red Blood Count 3.91L, Hemoglobin 12.9, Hematocrit 39.0, Mean Corpuscular Volume 99.7H, Mean Corpuscular Hemoglobin 33.0, Mean Corpuscular Hemoglobin Concent 33.1, Red Cell Distribution Width 15.1H, Platelet Count 199, Neutrophils (%) (Auto) 71.5H, Lymphocytes (%) (Auto) 14.8L, Monocytes (%) (Auto) 9.4H, Eosinophils (%) (Auto) 1.8, Basophils (%) (Auto) 0.2 , Neutrophils # (Auto) 4.9, Lymphocytes # (Auto) 1.0L, Monocytes # (Auto) 0.6, Eosinophils # (Auto) 0.1, Basophils # (Auto) 0.0, Large Unclassified Cells % 2.3 , Large Unclassified Cells # 0.2, Anion Gap 6L, Glomerular Filtration Rate > 60.0, Blood Urea Nitrogen 10, Creatinine 0.49L, Sodium Level 137, Potassium Level 3.7, Chloride Level 103, Carbon Dioxide Level 28, Calcium Level 7.8L, Aspartate Amino Transf (AST/SGOT) 13L, Alanine Aminotransferase (ALT/SGPT) 17, Alkaline Phosphatase 70, Total Bilirubin 0.4, Total Protein 5.4L, Albumin 2.3L, Magnesium Level 1.8, Albumin/Globulin Ratio 0.74L CBC/BMP Laboratory Tests 12/12/16 04:48 Red Blood Count 3.91 L, Mean Corpuscular Volume 99.7 H, Mean Corpuscular Hemoglobin 33.0, Mean Corpuscular Hemoglobin Concent 33.1, Red Cell Distribution Width 15.1 H, Neutrophils (%) (Auto) 71.5 H, Lymphocytes (%) (Auto ) 14.8 L, Monocytes (%) (Auto) 9.4 H, Eosinophils (%) (Auto) 1.8, Basophils (%) (Auto) 0.2, Neutrophils # (Auto) 4.9, Lymphocytes # (Auto) 1.0 L, Monocytes # ( Auto) 0.6, Eosinophils # (Auto) 0.1, Basophils # (Auto) 0.0, Calcium Level 7.8 L , Aspartate Amino Transf (AST/SGOT) 13 L, Alanine Aminotransferase (ALT/SGPT) 17 , Alkaline Phosphatase 70, Total Bilirubin 0.4, Total Protein 5.4 L, Albumin 2.3 L Microbiology Microbiology 12/09/16 Blood Culture - Preliminary, Resulted No Growth after 48 hours. All Specime... 12/09/16 Blood Culture - Preliminary, Resulted No Growth after 48 hours. All Specime... 12/10/16 Gastrointestinal Tract Panel (PCR) - Final, Complete 12/09/16 Urine Culture - Final, Complete ALFREDO DOVE MD December 12, 2016 14:08
[2016-12-12 16:00] VITALS: BP 120/52
[2016-12-12] MEDS: NYSTATIN 100,000 UNITS/GM TOPICAL PWD 15 GM TOP SCH (21:50)
[2016-12-12 22:00] VITALS: BP 130/69
[2016-12-12] MEDS ORDERED: ACETAMINOPHEN TAB 650MG DOSE (2X325MG) PO PRN (22:15)
[2016-12-12] MEDS: PANTOPRAZOLE 40MG INJ (PROTONIX) (C9113) IV SCH (22:45)
[2016-12-13] MEDS: D5W/0.45% SODIUM CHLORIDE 1,000 ML IV SCH (05:28)
[2016-12-13] MEDS: metroNIDAZOLE 500 MG in APPROPRIATE DILUENT 1 EA IV SCH ×3 (05:28→22:16)
[2016-12-13] MEDS ORDERED: ACETAMINOPHEN TAB 650MG DOSE (2X325MG) GT PRN (05:45)
[2016-12-13 06:00] VITALS: BP 158/88
[2016-12-13] MEDS: VALSARTAN 80 MG TAB (DIOVAN) GT SCH (06:22)
[2016-12-13 06:26] LABS: BASO % 0.1 % (0.0-1.0); EOS # 0.2 K/mm3 (0.0-0.50); EOS % 2.5 % (0.0-3.0); LARGE UNSTAINED CELL # 0.1 K/mm3 (0.0-0.4); LYMPH # 0.9 K/mm3 (1.5-4.5); LYMPH % 13.6 % (24.0-44.0); MEAN CORPUSCULAR HEMOGLOBIN 31.9 pg (27.0-33.0); MEAN CORPUSCULAR HGB CONC 32.4 g/dl (32.0-36.5); MEAN CORPUSCULAR VOLUME 98.5 fl (80.0-96.0); MONO # 0.5 K/mm3 (0.0-0.8); MONO % 8.4 % (0.0-5.0); NEUTROPHILS # 4.6 K/mm3 (1.8-7.7); NEUTROPHILS % 73.3 % (36.0-66.0); PLATELET COUNT, AUTOMATED 201 k/mm3 (150-450); WHITE BLOOD COUNT 6.3 K/mm3 (4.0-10.0)
[2016-12-13 06:50] LABS: ALBUMIN 2.4 GM/DL (3.2-5.2); ALBUMIN/GLOBULIN RATIO 0.77 (1.00-1.93); ALKALINE PHOSPHATASE 72 U/L (45-117); ALT/SGPT 23 U/L (12-78); ANION GAP 7 MEQ/L (8-16); AST/SGOT 20 U/L (15-37); BILIRUBIN,TOTAL 0.3 MG/DL (0.2-1.0); BLOOD UREA NITROGEN 8 MG/DL (7-18); CALCIUM LEVEL 7.7 MG/DL (8.8-10.2); CARBON DIOXIDE LEVEL 28 MEQ/L (21-32); CHLORIDE LEVEL 103 MEQ/L (98-107); GLOMERULAR FILTRATION RATE > 60.0 (>39); GLUCOSE, FASTING 111 MG/DL (83-110); MAGNESIUM LEVEL 1.7 MG/DL (1.8-2.4); POTASSIUM SERUM 3.6 MEQ/L (3.5-5.1); SODIUM LEVEL 138 MEQ/L (136-145); TOTAL PROTEIN 5.5 GM/DL (6.4-8.2)
[2016-12-13] MEDS: NYSTATIN 100,000 UNITS/GM TOPICAL PWD 15 GM TOP SCH ×2 (08:40→21:29)
[2016-12-13] MEDS: DIGOXIN 0.25 MG TAB GT SCH (08:40)
[2016-12-13] MEDS: FUROSEMIDE 20 MG TAB PEG SCH ×2 (08:40→18:18)
[2016-12-13] MEDS: SORBITOL 70% 30ML UNIT DOSE CUP GT SCH (08:41)
[2016-12-13] MEDS: CIPROFLOXACIN 400 MG in APPROPRIATE DILUENT 1 EA IV SCH ×2 (08:42→21:29)
--- NOTE | 2016-12-13 08:52 | IPNPDOC ---
Subjective Date Seen The patient was seen on 12/13/16. Subjective Chief Complaint/HPI The patient is a 76-year-old female admitted with a reason for visit of Abdominal Pain. Other systems Unable to reliably obtain given the patient's clinical condition Objective Physical Examination General Exam: Positive: No Acute Distress, Other (patient resting comfortably, in no acute distress, baseline nonverbal, follows some commands.) ENT Exam: Positive: Atraumatic, Mucous membr. moist/pink Neck Exam: Negative: JVD Chest Exam: Positive: Clear to auscultation, Normal air movement Heart Exam: Positive: Rate Normal, Normal S1, Normal S2 Abdomen Exam: Positive: Soft, Other (+G Tube), Negative: Tenderness Extremity Exam: Positive: Swelling (2+ pitting edema in the lower extremities bilaterally), Negative: Tenderness Assessment /Plan Plan/VTE VTE Prophylaxis Ordered?: Yes Plan RUQ Abdominal pain, Fever, Leukocytosis possibly 2/2 Acute Cholecystitis, Mild Cecitis in patient with a History of PEG Tube CT Scan of the Abd noted Patient on IVF, Cipro and Flagyl Patient afebrile this AM, WBC wnl at this time, Lactic Acid level wnl Surgery on board--appreciate their input--It did appear that the patient's G tube may have been dislodged, this has been adjusted by the surgical team The patient has been tolerating her tube feeds well and does not complain of any abdominal pain at this time Diarrhea, improving GI Panel negative for acute infection Atrial fibrillation, rate controlled Will hold Eliquis for possible surgery Cont digoxin and diltiazem. Hypertension, stable Cont valsartan and Lasix. Diastolic Congestive Heart Failure Patient appears euvolemic at this time Cont Lasix, Valsartan as ordered History of CVA with Right Sided Hemiparesis, Aphasia Gastroesophageal reflux disease (GERD) On Protonix Deep venous thrombosis (DVT) prophylaxis Heparin SC Dispositon: Will follow up with Surgery regarding further recommendations about possible cholecystectomy. If no surgery is indicated, patient will be restarted on anticoagulation and she can be transitioned back to the care home. VS, I&O, 24H, Fishbone Vital Signs/I&O Vital Signs Date Time Temp Pulse Resp B/P (MAP) Pulse Ox O2 Delivery O2 Flow Rate FiO2 12/13/16 08:40 80 142/68 12/13/16 06:00 97.8 20 93 Room Air 12/12/16 07:25 2.0 I&O- Last 24 Hours up to 6 AM 12/13/16 06:00 Intake Total 850 ml Output Total 0 ml Balance 850 ml Laboratory Data 24H LABS Laboratory Tests 2 12/13/16 05:54: White Blood Count 6.3, Red Blood Count 4.03, Hemoglobin 12.9, Hematocrit 39.7, Mean Corpuscular Volume 98.5H, Mean Corpuscular Hemoglobin 31.9, Mean Corpuscular Hemoglobin Concent 32.4, Red Cell Distribution Width 15.0H, Platelet Count 201, Neutrophils (%) (Auto) 73.3H, Lymphocytes (%) (Auto) 13.6L, Monocytes (%) (Auto) 8.4H, Eosinophils (%) (Auto) 2.5, Basophils (%) (Auto) 0.1 , Neutrophils # (Auto) 4.6, Lymphocytes # (Auto) 0.9L, Monocytes # (Auto) 0.5, Eosinophils # (Auto) 0.2, Basophils # (Auto) 0.0, Large Unclassified Cells % 2.0 , Large Unclassified Cells # 0.1, Anion Gap 7L, Glomerular Filtration Rate > 60.0, Blood Urea Nitrogen 8, Creatinine 0.50L, Sodium Level 138, Potassium Level 3.6, Chloride Level 103, Carbon Dioxide Level 28, Calcium Level 7.7L, Aspartate Amino Transf (AST/SGOT) 20, Alanine Aminotransferase (ALT/SGPT) 23, Alkaline Phosphatase 72, Total Bilirubin 0.3, Total Protein 5.5L, Albumin 2.4L, Magnesium Level 1.7L, Albumin/Globulin Ratio 0.77L CBC/BMP Laboratory Tests 12/13/16 05:54 Red Blood Count 4.03, Mean Corpuscular Volume 98.5 H, Mean Corpuscular Hemoglobin 31.9, Mean Corpuscular Hemoglobin Concent 32.4, Red Cell Distribution Width 15.0 H, Neutrophils (%) (Auto) 73.3 H, Lymphocytes (%) (Auto ) 13.6 L, Monocytes (%) (Auto) 8.4 H, Eosinophils (%) (Auto) 2.5, Basophils (%) (Auto) 0.1, Neutrophils # (Auto) 4.6, Lymphocytes # (Auto) 0.9 L, Monocytes # ( Auto) 0.5, Eosinophils # (Auto) 0.2, Basophils # (Auto) 0.0, Calcium Level 7.7 L , Aspartate Amino Transf (AST/SGOT) 20, Alanine Aminotransferase (ALT/SGPT) 23, Alkaline Phosphatase 72, Total Bilirubin 0.3, Total Protein 5.5 L, Albumin 2.4 L Microbiology Microbiology 12/09/16 Blood Culture - Preliminary, Resulted No Growth after 72 hours. All specime... 12/09/16 Blood Culture - Preliminary, Resulted No Growth after 72 hours. All specime... 12/10/16 Gastrointestinal Tract Panel (PCR) - Final, Complete 12/09/16 Urine Culture - Final, Complete ALFREDO DOVE MD December 13, 2016 08:52
[2016-12-13 14:00] VITALS: BP 152/90
--- NOTE | 2016-12-13 19:52 | DS.PDOC ---
Discharge Summary General Date of Admission December 09, 2016 at 20:05 Date of Discharge 12/14/16 Specialist/Consultants Involve: MATT BEE MD Discharge Summary PROCEDURES PERFORMED DURING STAY: None ADMITTING DIAGNOSES: 1. .Abdominal Pain 2/2 Colitis vs Possible Cholecystitis/Appendicitis 2. HX of CVA s/p G-Tube DISCHARGE DIAGNOSES: 1. .Abdominal Pain 2/2 Colitis vs Possible Cholecystitis/Appendicitis 2. HX of CVA s/p G-Tube COMPLICATIONS/CHIEF COMPLAINT: Abdominal Pain. HISTORY OF PRESENT ILLNESS: 76 Y/O F from [facility] with a PMH of Unstable angina, Atrial fibrillation with rapid ventricular response, Gastroesophageal reflux disease, Anemia, Hypertension, Hyperlipidemia, Obstructive sleep apnea, History of congestive heart failure, CVA 2014 with right-sided hemiparesis, Aphasia, s/p G-Tube 2/2 Dysphagia presented from the [facility] with the chief complaint of fevers, nausea, vomiting, RUQ abdominal pain, and diarrhea. The history was limited given the patients clinical condition. In the ER, a CT Scan of the abdomen was obtained and this revealed inflammatory changes in the cecum. The patient was admitted to the hospitalist service for further evaluation and management. The patient was started on IVF Hydration, IV Antibiotics, and a consult for surgery was placed. Surgery did discuss the possibility of cholecystectomy and appendectomy given the patients symptoms and lack of clinical correlation given the patients inability to communicate. The patients condition did significantly improve following medical treatment outlined above. She no longer has had any fevers, RUQ abdominal pain, or any episodes of vomiting/diarrhea. At this time the patient has been transitioned to PO antibiotics. Dr. Bee of surgery has discussed surgical options for the patient that can be done as an outpatient. The patient will be transferred back to [facility]. DISCHARGE MEDICATIONS: Please see below. ALLERGIES: Please see below. PHYSICAL EXAMINATION ON DISCHARGE: VITAL SIGNS: Please see below. General Exam: Positive: No Acute Distress, Other (patient resting comfortably, in no acute distress, baseline nonverbal, follows some commands.) ENT Exam: Positive: Atraumatic, Mucous membr. moist/pink Neck Exam: Negative: JVD Chest Exam: Positive: Clear to auscultation, Normal air movement Heart Exam: Positive: Rate Normal, Normal S1, Normal S2 Abdomen Exam: Positive: Soft, Other (+G Tube), Negative: Tenderness Extremity Exam: Positive: Swelling (2+ pitting edema in the lower extremities bilaterally), Negative: Tenderness LABORATORY DATA: Please see below. IMAGING: CT ABDOMEN AND PELVIS WITH IV AND ORAL CONTRAST: 12/09/2016. Clinical history: Abdominal pain, vomiting. [employer] film shows the patients PEG tube and bilateral total hip arthroplasties as before. Technique: Oral Gastrografin mixture of 10 ml in 290 ml of flavored water per our bowel contrast protocol and a bolus of 100 ml Isovue 370 and scanning through the abdomen and pelvis. Coronal and sagittal reconstructions were provided. Axial orthopedic metal artifact reduction algorithm also used. Findings: CT abdomen/pelvis: There is some subsegmental atelectasis right lower lobe and dependent atelectasis deep sulci bilaterally. No effusion, nodule, infiltrate or mass. Heart mildly enlarged. There is left atrial and ventricular enlargement. There are coronary calcifications. No pericardial thickening or effusion. Gastrostomy feeding tube via the anterior abdominal wall into the stomach. Balloon inflated in the antrum or duodenal bulb/second portion duodenum. No visible hiatal hernia. I see mild hepatomegaly with an 18.5 cm vertical diameter of the liver in the midclavicular line. There is no splenomegaly or focal splenic lesion. No intrahepatic biliary dilatation or adjacent ascites. Gallbladder shows a calcified stone in its fundus up to 3 cm. Pancreas shows normal common duct in its head where the pancreatic duct is not abnormally dilated. No definite mass or peripancreatic adenopathy/fluid. The aorta has atherosclerotic calcifications and tortuosity without aneurysm. No periaortic or other retroperitoneal pathologic sized lymphadenopathy. Small bowel loops are not abnormally dilated and show fluid or oral contrast within. No wall thickening, mass or infiltration of the mesentery. There is no evidence for perforation or free air on lung window review of all CT slice levels. No generalized ascites. There is a small amount of fluid in the lateral coronal fascia adjacent to the right colon and inferior tip of the liver but no generalized ascites. There is diverticulosis of the left colon distally without diverticulitis. Small amount of thickening of the wall of the cecum noted which may reflect some mild inflammatory change. However the terminal ileum is normal in caliber and without inflammatory changes. Extensive distal left colonic and proximal sigmoid diverticulosis without diverticulitis. Moderate constipation in the rectosigmoid vault. No pelvic adenopathy or free fluid. Degenerative changes in the spine and lower lumbar facets noted unchanged. No compression deformities. The visualized ribs are intact. The patient has had bilateral total hip arthroplasties as seen on the previous CT. I see no ventral or inguinal hernia. Bladder is adequately filled. There is no bladder wall mass or definite stone although some spray artifact still limits portions of the posterior bladder evaluation. There is no pelvic mass. Impression: 1. There is a gastrostomy feeding tube by the anterior abdominal wall into the stomach with a balloon inflated at the catheter tip within region of the gastric antrum or proximal duodenum. Small bowel loops are not abnormally dilated and the stomach is not distended. Oral contrast from that tube is passed throughout small bowel loops into the right colon with the proximal loops now only fluid-filled. 2. Mild hepatomegaly without biliary dilatation or adjacent ascites. No hepatic mass. 3. A 3 cm partially calcified gallstone in the fundus of the gallbladder, unchanged. 4. Minor inflammatory changes about the cecum without mass and with diverticulosis of the distal left colon and sigmoid without diverticulitis. Moderate retention of stool in the rectosigmoid vault. No other significant or acute finding. There are bilateral total hip arthroplasties. No abdominal wall hernia. PROGNOSIS: Medically Stable at this time ACTIVITY: As tolerated DIET: Jevity Tube Feeding as prescribed DISCHARGE PLAN: Transfer to [facility] DISPOSITION: . DISCHARGE INSTRUCTIONS: 1. Follow up with PCP within 1-2 weeks 2. Follow up with Dr. Bee of Surgery as an outpatient for further surgical considerations DISCHARGE CONDITION: Stable TIME SPENT ON DISCHARGE: Greater than 30 minutes. Vital Signs/I&Os Vital Signs Date Time Temp Pulse Resp B/P (MAP) Pulse Ox O2 Delivery O2 Flow Rate FiO2 12/13/16 18:18 87 152/90 12/13/16 14:00 97.8 18 92 Room Air 12/12/16 07:25 2.0 I&O- Last 24 Hours up to 6 AM 12/13/16 06:00 Intake Total 850 ml Output Total 0 ml Balance 850 ml Laboratory Data Labs 24H Laboratory Tests 2 12/13/16 05:54: White Blood Count 6.3, Red Blood Count 4.03, Hemoglobin 12.9, Hematocrit 39.7, Mean Corpuscular Volume 98.5H, Mean Corpuscular Hemoglobin 31.9, Mean Corpuscular Hemoglobin Concent 32.4, Red Cell Distribution Width 15.0H, Platelet Count 201, Neutrophils (%) (Auto) 73.3H, Lymphocytes (%) (Auto) 13.6L, Monocytes (%) (Auto) 8.4H, Eosinophils (%) (Auto) 2.5, Basophils (%) (Auto) 0.1 , Neutrophils # (Auto) 4.6, Lymphocytes # (Auto) 0.9L, Monocytes # (Auto) 0.5, Eosinophils # (Auto) 0.2, Basophils # (Auto) 0.0, Large Unclassified Cells % 2.0 , Large Unclassified Cells # 0.1, Anion Gap 7L, Glomerular Filtration Rate > 60.0, Blood Urea Nitrogen 8, Creatinine 0.50L, Sodium Level 138, Potassium Level 3.6, Chloride Level 103, Carbon Dioxide Level 28, Calcium Level 7.7L, Aspartate Amino Transf (AST/SGOT) 20, Alanine Aminotransferase (ALT/SGPT) 23, Alkaline Phosphatase 72, Total Bilirubin 0.3, Total Protein 5.5L, Albumin 2.4L, Magnesium Level 1.7L, Albumin/Globulin Ratio 0.77L CBC/BMP Laboratory Tests 12/13/16 05:54 Red Blood Count 4.03, Mean Corpuscular Volume 98.5 H, Mean Corpuscular Hemoglobin 31.9, Mean Corpuscular Hemoglobin Concent 32.4, Red Cell Distribution Width 15.0 H, Neutrophils (%) (Auto) 73.3 H, Lymphocytes (%) (Auto ) 13.6 L, Monocytes (%) (Auto) 8.4 H, Eosinophils (%) (Auto) 2.5, Basophils (%) (Auto) 0.1, Neutrophils # (Auto) 4.6, Lymphocytes # (Auto) 0.9 L, Monocytes # ( Auto) 0.5, Eosinophils # (Auto) 0.2, Basophils # (Auto) 0.0, Calcium Level 7.7 L , Aspartate Amino Transf (AST/SGOT) 20, Alanine Aminotransferase (ALT/SGPT) 23, Alkaline Phosphatase 72, Total Bilirubin 0.3, Total Protein 5.5 L, Albumin 2.4 L Microbiology Microbiology 12/09/16 Blood Culture - Preliminary, Resulted No Growth after 72 hours. All specime... 12/09/16 Blood Culture - Preliminary, Resulted No Growth after 72 hours. All specime... 12/10/16 Gastrointestinal Tract Panel (PCR) - Final, Complete 12/09/16 Urine Culture - Final, Complete Discharge Medications Scheduled (Jevity 1.5 Darius/Fiber) 1 Liq Liq, 1 LIQ FT 5XD, (Reported) (Potassium Chloride) 20 % Liq, 20 MEQ FT QHS, (Reported) Apixaban Base (Eliquis) 5 Mg Tab, 5 MG FT BID, (Reported) Digoxin (Digoxin) 0.25 Mg Tab, 0.25 MG FT DAILY, (Reported) Diltiazem HCl (Cardizem) 30 Mg Tab, 30 MG FT QID, (Reported) Furosemide (Lasix) 20 Mg Tab, 20 MG PEG BID, (Reported) @1000,1400 Sorbitol (Sorbitol 70%) 30 Ml Geovanna, 15 ML FT DAILY, (Reported) Valsartan (Diovan) 80 Mg Tab, 80 MG FT DAILY, (Reported) Scheduled PRN Acetaminophen (Tylenol) 325 Mg Tab, 650 MG FT Q4H PRN for PAIN, (Reported) Acetaminophen (Acephen) 650 Mg Sup, 650 MG MS Q6H PRN for FEVER, (Reported) Bisacodyl (Dulcolax) 10 Mg Sup, 10 MG MS DAILY PRN for CONSTIPATION, (Reported) Milk Of Magnesia (Milk of Magnesia) 1,200 Mg/15 Ml Tomasa, 30 ML FT DAILY PRN for CONSTIPATION, (Reported) Nitroglycerin (Nitrostat) 0.4 Mg Subl, 0.4 MG SL Q5MP PRN for CHEST PAIN, ( Reported) Allergies Coded Allergies: Penicillins (Verified Allergy, Intermediate, HIVES, 06/23/15) Codeine (Verified Adverse Reaction, Mild, NAUSEA, 06/23/15) ALFREDO DOVE MD December 13, 2016 19:52
[2016-12-13] MEDS ORDERED: CIPR500T89 PO (20:08)
[2016-12-13] MEDS ORDERED: METR500T10 PO (20:08)
[2016-12-13] MEDS: PANTOPRAZOLE 40MG INJ (PROTONIX) (C9113) IV SCH (21:29)
[2016-12-13] MEDS: APIXABAN 5 MG TAB (ELIQUIS) FT SCH (21:29)
[2016-12-13 22:00] VITALS: BP 146/85
[2016-12-14] MEDS: D5W/0.45% SODIUM CHLORIDE 1,000 ML IV SCH (02:04)
[2016-12-14] MEDS: metroNIDAZOLE 500 MG in APPROPRIATE DILUENT 1 EA IV SCH (04:45)
[2016-12-14 06:00] VITALS: BP 138/74
[2016-12-14 06:46] LABS: BASO % 0.1 % (0.0-1.0); EOS # 0.1 K/mm3 (0.0-0.50); EOS % 2.1 % (0.0-3.0); LARGE UNSTAINED CELL # 0.1 K/mm3 (0.0-0.4); LARGE UNSTAINED CELL % 1.6 % (0.0-4.0); LYMPH # 0.9 K/mm3 (1.5-4.5); LYMPH % 13.7 % (24.0-44.0); MEAN CORPUSCULAR HEMOGLOBIN 32.3 pg (27.0-33.0); MONO # 0.5 K/mm3 (0.0-0.8); MONO % 7.5 % (0.0-5.0); NEUTROPHILS # 4.7 K/mm3 (1.8-7.7); PLATELET COUNT, AUTOMATED 188 k/mm3 (150-450); RED CELL DISTRIBUTION WIDTH 14.9 % (11.5-14.5); WHITE BLOOD COUNT 6.2 K/mm3 (4.0-10.0)
[2016-12-14 06:58] LABS: ALBUMIN 2.4 GM/DL (3.2-5.2); ALKALINE PHOSPHATASE 67 U/L (45-117); ALT/SGPT 27 U/L (12-78); ANION GAP 6 MEQ/L (8-16); AST/SGOT 25 U/L (15-37); BILIRUBIN,TOTAL 0.3 MG/DL (0.2-1.0); BLOOD UREA NITROGEN 5 MG/DL (7-18); CALCIUM LEVEL 7.7 MG/DL (8.8-10.2); CARBON DIOXIDE LEVEL 29 MEQ/L (21-32); CHLORIDE LEVEL 104 MEQ/L (98-107); CREATININE FOR GFR 0.47 MG/DL (0.55-1.02); GLOMERULAR FILTRATION RATE > 60.0 (>39); GLUCOSE, FASTING 108 MG/DL (83-110); MAGNESIUM LEVEL 1.6 MG/DL (1.8-2.4); POTASSIUM SERUM 3.5 MEQ/L (3.5-5.1); SODIUM LEVEL 139 MEQ/L (136-145); TOTAL PROTEIN 5.4 GM/DL (6.4-8.2)
[2016-12-14] MEDS ORDERED: MAGNESIUM OXIDE 400 MG TAB (MAG-OX) PO ONE (07:15)
[2016-12-14] MEDS: SORBITOL 70% 30ML UNIT DOSE CUP GT SCH (08:57)
[2016-12-14 08:58] VITALS: BP 138/74
[2016-12-14] MEDS: VALSARTAN 80 MG TAB (DIOVAN) GT SCH (08:58)
[2016-12-14] MEDS: FUROSEMIDE 20 MG TAB PEG SCH (08:58)
[2016-12-14] MEDS: NYSTATIN 100,000 UNITS/GM TOPICAL PWD 15 GM TOP SCH (08:59)
[2016-12-14] MEDS: DIGOXIN 0.25 MG TAB GT SCH (08:59)
[2016-12-14] MEDS: APIXABAN 5 MG TAB (ELIQUIS) FT SCH (08:59)
[2016-12-14] MEDS: CIPROFLOXACIN 400 MG in APPROPRIATE DILUENT 1 EA IV SCH (09:00)
--- NOTE | 2016-12-14 11:34 | IPNPDOC ---
Text Note Date of Service The patient was seen on 12/14/16. NOTE Subjective: Patient is a 76 year old female with a PMHx of Unstable angina, A. fib with RVR, GERD, Anemia, HTN, DLP, BEATRIS, CHF, CVA (2014, w/ Residual R sided weakness / aphasia), s/p PEG 2/2 Dysphagia who presented from [facility] because of fevers, nausea, vomiting and RUQ pain. CT scan in ER revealed imflammatory changes of cecum and +gallstones without evidence of cholecystitis. Patient was admitted to hospitalist service and given IV fluid hydration and antibiotics. Patient had improved with antibiotics and was transitioned to oral antibiotics. Patient has been cleared by surgery for discharge back to assisted. Patient has been seen and examined at the bedside. Has no complaints or signs of discomfort this morning. Objective: Vitals (See below) General: Lying in bed, no acute distress, comfortable, AAOx3 HEENT: NC, AT CVS: +S1S2 Lungs: Fair air entry b/l, -w/r/r Abdomen: Soft, ND, NT, +BSx4, + PEG tube Extremities: +PPx4, - Edema, - Calf tenderness Assessment and plan: 1. Abdominal pain - possibly 2/2 cecitis - Clinically improved; no complaints of nausea / vomiting / abdominal pain - Physical unhealing for tenderness, rigidity or rebound - CT abdomen noted - c/w Ciprofloxacin and Flagyl (will complete 6 more days of antibiotic therapy) - Surgery following - cleared for discharge back to [facility] - Will follow up as an outpatient with surgery 2. s/p Diarrhea -GI panel negative 3. A. fib with RVR - Rate controlled with Digoxin and Diltazem - c/w Eliquis on discharge 4. HTN - BP well controlled - c/w Valsartan and Lasix with holding parameters 5. Diastolic CHF - no signs of fluid overload at this time - c/w Lasix 6. Hx of CVA w/ R sided hemiparesis and aphasia 7. GERD - c/w Protonix 8. DVT prophyalxis - c/w Heparin Disposition: - Will be going back to [facility] today - [place] [facility] [place]e Doty, I+O Janae RUSS, I+O Laboratory Tests 12/14/16 06:05 Red Blood Count 4.12, Mean Corpuscular Volume 98.0 H, Mean Corpuscular Hemoglobin 32.3, Mean Corpuscular Hemoglobin Concent 33.0, Red Cell Distribution Width 14.9 H, Neutrophils (%) (Auto) 75.0 H, Lymphocytes (%) (Auto ) 13.7 L, Monocytes (%) (Auto) 7.5 H, Eosinophils (%) (Auto) 2.1, Basophils (%) (Auto) 0.1, Neutrophils # (Auto) 4.7, Lymphocytes # (Auto) 0.9 L, Monocytes # ( Auto) 0.5, Eosinophils # (Auto) 0.1, Basophils # (Auto) 0.0, Calcium Level 7.7 L , Aspartate Amino Transf (AST/SGOT) 25, Alanine Aminotransferase (ALT/SGPT) 27, Alkaline Phosphatase 67, Total Bilirubin 0.3, Total Protein 5.4 L, Albumin 2.4 L Vital Signs Date Time Temp Pulse Resp B/P (MAP) Pulse Ox O2 Delivery O2 Flow Rate FiO2 12/14/16 08:59 75 12/14/16 08:58 138/74 12/14/16 06:00 98.9 16 95 Room Air 12/12/16 07:25 2.0 I&O- Last 24 Hours up to 6 AM 12/14/16 06:00 Intake Total 1280 ml Output Total 0 ml Balance 1280 ml KERLINE NULL MD December 14, 2016 11:14
== END 2016-12-14 11:59 | DRG 445 ==
LOC: EDBD 10:26 → M ED 12:26 → M ED INP 20:05 → M PCU 21:27 → M MSPAV 12-12 17:49
PROVIDERS: ADMIT Internal Medicine; ATTEND Internal Medicine
DX: K80.20 Calculus of gallbladder without cholecystitis without obstruction (principal); I69.351 Hemiplegia and hemiparesis following cerebral infarction affecting right dominant side; I50.32 Chronic diastolic (congestive) heart failure; E87.5 Hyperkalemia; K52.9 Noninfective gastroenteritis and colitis, unspecified; I69.320 Aphasia following cerebral infarction; K59.00 Constipation, unspecified; I48.91 Unspecified atrial fibrillation; Z66 Do not resuscitate; I69.391 Dysphagia following cerebral infarction; K21.9 Gastro-esophageal reflux disease without esophagitis; I25.2 Old myocardial infarction; D64.9 Anemia, unspecified; K94.29 Other complications of gastrostomy; I10 Essential (primary) hypertension; E78.5 Hyperlipidemia, unspecified; G47.33 Obstructive sleep apnea (adult) (pediatric); Z79.01 Long term (current) use of anticoagulants; Z79.899 Other long term (current) drug therapy; Z96.643 Presence of artificial hip joint, bilateral

== ENCOUNTER → 2016-12-09 | Outpatient (REF) | payer MEDICARE, MEDICAID ==
[~2016-12-09] MED LIST changes: +ACEP650S PR; +CIPR500T89 PO; +DULC10SU2 PR; +LASI20TA PEG; +METR500T10 PO; +MILKSUS FT; +NITR4TASL SL; +POTA10LI10 FT; +SORB70SO FT
[2016-12-09 10:13] LABS: MEAN CORPUSCULAR HEMOGLOBIN 32.1 pg (27.0-33.0); MEAN CORPUSCULAR HGB CONC 32.7 g/dl (32.0-36.5); MEAN CORPUSCULAR VOLUME 98.1 fl (80.0-96.0); RED CELL DISTRIBUTION WIDTH 15.4 % (11.5-14.5)
[2016-12-09 10:29] LABS: ALBUMIN/GLOBULIN RATIO 1.07 (1.00-1.93); ALKALINE PHOSPHATASE 104 U/L (45-117); ALT/SGPT 28 U/L (12-78); ANION GAP 11 MEQ/L (8-16); AST/SGOT 21 U/L (15-37); BILIRUBIN,TOTAL 0.8 MG/DL (0.2-1.0); BLOOD UREA NITROGEN 25 MG/DL (7-18); CALCIUM LEVEL 8.1 MG/DL (8.8-10.2); CARBON DIOXIDE LEVEL 29 MEQ/L (21-32); CHLORIDE LEVEL 95 MEQ/L (98-107); CREATININE FOR GFR 0.66 MG/DL (0.55-1.02); GLOMERULAR FILTRATION RATE > 60.0 (>39); GLUCOSE, FASTING 90 MG/DL (83-110); POTASSIUM SERUM 4.6 MEQ/L (3.5-5.1); SODIUM LEVEL 135 MEQ/L (136-145); TOTAL PROTEIN 5.8 GM/DL (6.4-8.2)
== END ==
PROVIDERS: ATTEND Internal Medicine
DX: R50.9 Fever, unspecified (principal); R19.7 Diarrhea, unspecified

== ENCOUNTER → 2016-12-21 | Outpatient (REF) | payer MEDICARE, MEDICAID ==
[~2016-12-21] MED LIST changes: +ACEP650S PR; +CIPR500T89 PO; +METR500T10 PO; +NITR4TASL SL
[2016-12-21 11:11] LABS: MEAN CORPUSCULAR HEMOGLOBIN 32.1 pg (27.0-33.0); MEAN CORPUSCULAR HGB CONC 32.9 g/dl (32.0-36.5); MEAN CORPUSCULAR VOLUME 97.6 fl (80.0-96.0); RED CELL DISTRIBUTION WIDTH 14.9 % (11.5-14.5)
[2016-12-21 11:24] LABS: ANION GAP 4 MEQ/L (8-16); BLOOD UREA NITROGEN 12 MG/DL (7-18); CALCIUM LEVEL 8.2 MG/DL (8.8-10.2); CARBON DIOXIDE LEVEL 38 MEQ/L (21-32); CHLORIDE LEVEL 91 MEQ/L (98-107); CREATININE FOR GFR 0.47 MG/DL (0.55-1.02); GLOMERULAR FILTRATION RATE > 60.0 (>39); GLUCOSE, FASTING 128 MG/DL (83-110); POTASSIUM SERUM 4.4 MEQ/L (3.5-5.1); SODIUM LEVEL 133 MEQ/L (136-145)
== END ==
PROVIDERS: ATTEND Internal Medicine
DX: I48.91 Unspecified atrial fibrillation (principal); I10 Essential (primary) hypertension

== ENCOUNTER → 2016-12-28 | Outpatient (REF) | payer MEDICARE, MEDICAID ==
[2016-12-28 10:00] LABS: MEAN CORPUSCULAR HEMOGLOBIN 31.6 pg (27.0-33.0); MEAN CORPUSCULAR HGB CONC 33.1 g/dl (32.0-36.5); MEAN CORPUSCULAR VOLUME 95.3 fl (80.0-96.0); RED CELL DISTRIBUTION WIDTH 15.2 % (11.5-14.5)
[2016-12-28 10:03] LABS: ANION GAP 8 MEQ/L (8-16); BLOOD UREA NITROGEN 15 MG/DL (7-18); CALCIUM LEVEL 8.3 MG/DL (8.8-10.2); CARBON DIOXIDE LEVEL 33 MEQ/L (21-32); CHLORIDE LEVEL 92 MEQ/L (98-107); CREATININE FOR GFR 0.46 MG/DL (0.55-1.02); GLOMERULAR FILTRATION RATE > 60.0 (>39); GLUCOSE, FASTING 136 MG/DL (83-110); POTASSIUM SERUM 4.6 MEQ/L (3.5-5.1); SODIUM LEVEL 133 MEQ/L (136-145)
== END ==
PROVIDERS: ATTEND Internal Medicine
DX: I12.9 Hypertensive chronic kidney disease with stage 1 through stage 4 chronic kidney disease, or unspecified chronic kidney disease (principal)

== ENCOUNTER → 2017-01-04 | Outpatient (REF) | payer MEDICARE, MEDICAID ==
[2017-01-04 10:56] LABS: MEAN CORPUSCULAR HEMOGLOBIN 31.8 pg (27.0-33.0); MEAN CORPUSCULAR HGB CONC 33.1 g/dl (32.0-36.5); MEAN CORPUSCULAR VOLUME 95.8 fl (80.0-96.0); RED CELL DISTRIBUTION WIDTH 15.4 % (11.5-14.5); WHITE BLOOD COUNT 5.9 K/mm3 (4.0-10.0)
[2017-01-04 11:10] LABS: ANION GAP 7 MEQ/L (8-16); BLOOD UREA NITROGEN 16 MG/DL (7-18); CALCIUM LEVEL 8.5 MG/DL (8.8-10.2); CARBON DIOXIDE LEVEL 32 MEQ/L (21-32); CHLORIDE LEVEL 95 MEQ/L (98-107); CREATININE FOR GFR 0.54 MG/DL (0.55-1.02); GLOMERULAR FILTRATION RATE > 60.0 (>39); GLUCOSE, FASTING 129 MG/DL (83-110); POTASSIUM SERUM 4.1 MEQ/L (3.5-5.1); SODIUM LEVEL 134 MEQ/L (136-145)
== END ==
PROVIDERS: ATTEND Internal Medicine
DX: I12.9 Hypertensive chronic kidney disease with stage 1 through stage 4 chronic kidney disease, or unspecified chronic kidney disease (principal); N18.9 Chronic kidney disease, unspecified

== ENCOUNTER → 2017-01-26 | Outpatient (REF) | payer MEDICARE, MEDICAID ==
[2017-01-26 10:28] LABS: MEAN CORPUSCULAR HEMOGLOBIN 32.7 pg (27.0-33.0); MEAN CORPUSCULAR HGB CONC 33.7 g/dl (32.0-36.5); MEAN CORPUSCULAR VOLUME 96.9 fl (80.0-96.0); RED CELL DISTRIBUTION WIDTH 15.2 % (11.5-14.5)
== END ==
PROVIDERS: ATTEND Internal Medicine
DX: N18.9 Chronic kidney disease, unspecified (principal); I12.9 Hypertensive chronic kidney disease with stage 1 through stage 4 chronic kidney disease, or unspecified chronic kidney disease

== ENCOUNTER 2017-01-28 07:37 | Day surgery (SDC) | payer MEDICARE, MEDICAID ==
--- NOTE | 2017-01-27 09:15 | HPEPDOC ---
General Surgery H&P Date of Admission History and Physical CHIEF COMPLAINT: Abdominal pain HISTORY OF PRESENT ILLNESS: Patient is being brought electively today for planned cholecystectomy and appendectomy. She was admitted back in December with severe abdominal pain nausea and vomiting. CT scan of the abdomen and pelvis shows cholelithiasis may be mild cholecystitis possibly seek hiatus or early appendicitis. She was treated nonoperatively at that time and she improved. After discussing with family, they wished to proceed with cholecystectomy at the same time perform appendectomy to prevent recurrence. She has been seen and evaluated by her primary care doctor to make sure she is optimized 40 upcoming surgery. ALLERGIES: Please see below. HOME MEDICATIONS: Please see below. PAST MEDICAL HISTORY: 1. Unstable angina. 2. Hyperkalemia. 3. Mild volume overload. 4. Atrial fibrillation with rapid ventricular response. 5. Gastroesophageal reflux disease. 6. Anemia. 7. Hypertension. 8. Hyperlipidemia. 9. Obstructive sleep apnea. 10. History of congestive heart failure. 11. 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 PAST SURGICAL HISTORY: Gastrostomy (G) tube placement. hysterectomy, daughter does not know if appendectomy done at same time PERSONAL/SOCIAL HISTORY: Denies smoking, alcohol use, or recreational drug use. REVIEW OF SYSTEMS: Unobtainable patient is aphasic PHYSICAL EXAMINATION: VITAL SIGNS: Please see below. GENERAL APPEARANCE: Patient seen at bedside, appears comfortable. Awake, alert, oriented. HEENT: Normocephalic, atraumatic. mnild pale palpebral conjunctivae. Anicteric sclerae. Lips moist. CHEST: No chest wall abnormalities. Normal respiratory motion/effort. NECK: Supple. No thyromegaly. No lymphadenopathies. LUNGS: Lung sounds are clear to auscultation bilaterally. No wheezing appreciated. HEART: No chest wall abnormalities. Heart rate and rhythm are regular with no murmurs. ABDOMEN: Abdomen is obese, soft, slightly rounded. No hepatosplenomegaly. No umbilical or groin herniations, nondistended. No noticeable rebound or guarding. No grimacing with palpation. No rebound tenderness. No masses appreciated. SKIN: Warm, moist. EXTREMITIES: Extremities have no deformities. No edema identified. NEUROLOGICAL: . ANCILLARIES: . LABORATORY DATA: Please see below. MICROBIOLOGY: Please see below. IMAGIN. There is a gastrostomy feeding tube by the anterior abdominal wall into the stomach with a balloon inflated at the catheter tip within region of the gastric antrum or proximal duodenum. Small bowel loops are not abnormally dilated and the stomach is not distended. Oral contrast from that tube is passed throughout small bowel loops into the right colon with the proximal loops now only fluid-filled. 2. Mild hepatomegaly without biliary dilatation or adjacent ascites. No hepatic mass. 3. A 3 cm partially calcified gallstone in the fundus of the gallbladder, unchanged. 4. Minor inflammatory changes about the cecum without mass and with diverticulosis of the distal left colon and sigmoid without diverticulitis. Moderate retention of stool in the rectosigmoid vault. No other significant or acute finding. There are bilateral total hip arthroplasties. No abdominal wall hernia. IMPRESSION AND PLAN: Kavitha discussion with the family members when she was admitted in the hospital for the abdominal pain back in December. She did improve with nonoperative therapy and antibiotics with her concern of recurrence of her symptoms to the point that may lead her back to the hospital. They have a total bladder undergo surgery. She'll undergo cholecystectomy as well as appendectomy. We are hoping to do this laparoscopically. She was seen by her primary care doctor for medical clearance. Vital Signs 97.5 147/85 69 16 93% at room air Home Medications Scheduled (Jevity 1.5 Darius/Fiber) 1 Liq Liq, 1 LIQ FT 5XD, (Reported) (Potassium Chloride) 20 % Liq, 20 MEQ FT QHS, (Reported) Apixaban Base (Eliquis) 5 Mg Tab, 5 MG FT BID, (Reported) Digoxin (Digoxin) 0.25 Mg Tab, 0.25 MG FT DAILY, (Reported) Diltiazem HCl (Cardizem) 30 Mg Tab, 30 MG FT QID, (Reported) Furosemide (Lasix) 20 Mg Tab, 20 MG PEG BID, (Reported) @1000,1400 Sorbitol (Sorbitol 70%) 30 Ml Geovanna, 15 ML FT DAILY, (Reported) Valsartan (Diovan) 80 Mg Tab, 80 MG FT DAILY, (Reported) Scheduled PRN Acetaminophen (Tylenol) 325 Mg Tab, 650 MG FT Q4H PRN for PAIN, (Reported) Acetaminophen (Acephen) 650 Mg Sup, 650 MG AL Q6H PRN for FEVER, (Reported) Bisacodyl (Dulcolax) 10 Mg Sup, 10 MG AL DAILY PRN for CONSTIPATION, (Reported) Milk Of Magnesia (Milk of Magnesia) 1,200 Mg/15 Ml Tomasa, 30 ML FT DAILY PRN for CONSTIPATION, (Reported) Nitroglycerin (Nitrostat) 0.4 Mg Subl, 0.4 MG SL Q5MP PRN for CHEST PAIN, ( Reported) Allergies Coded Allergies: Penicillins (Verified Allergy, Intermediate, HIVES, 01/28/17) Codeine (Verified Adverse Reaction, Mild, NAUSEA, 06/23/15) MATT COOPER MD Jan 27, 2017 09:13
[2017-01-28] VITALS (15 sets, daily range): BP systolic 97–134; BP diastolic 58–83
[~2017-01-28] VITALS: Ht 165.1 cm; Wt 78.0 kg
[~2017-01-28 07:37] MED LIST changes: -ATOR1TAB18 FT; +ATOR80TA59 FT; +CIPR-249 PO; -CIPR500T89 PO; +METR1TAB66 PO; -METR500T10 PO; +PROV100T25 FT; -PROV100T4 FT; +TUBE5INJ ID; -TUBE5INJ9 ID
[2017-01-28] MEDS ORDERED: LevoFLOXacin(LEVAQUIN)500 MG/100 ML BAG (J1956) As Ordered ONE (07:44)
[2017-01-28] MEDS ORDERED: LR 1,000 ML IV SCH ×2 (07:45→12:15)
[2017-01-28] MEDS ORDERED: LR 1,000 ML IV ONE (07:45)
[2017-01-28] MEDS ORDERED: metroNIDAZOLE 500 MG in APPROPRIATE DILUENT 1 EA IV ONE (08:00)
[2017-01-28] MEDS ORDERED: LevoFLOXacin IV 500 MG in APPROPRIATE DILUENT 1 EA IV ONE (08:00)
[2017-01-28] MEDS ORDERED: MIDAZOLAM INJ 2 MG/2 ML VIAL (J2250) As Ordered ONE (08:33)
[2017-01-28] MEDS ORDERED: fentaNYL 100 MCG/2 ML INJECTION (J3010) As Ordered ONE (08:33)
[2017-01-28] MEDS ORDERED: BUPIVACAINE HCL 0.25% 30 ML VIAL As Ordered ONE (08:40)
[2017-01-28] MEDS ORDERED: LIDOCAINE 1% SDV INJ 30 ML VIAL As Ordered ONE (08:40)
[2017-01-28] MEDS: SORBITOL 70% 30ML UNIT DOSE CUP PEG SCH (09:00)
[2017-01-28] MEDS: VALSARTAN 80 MG TAB (DIOVAN) PO SCH (09:00)
[2017-01-28] MEDS ORDERED: LIDOCAINE 2% INJ 100 MG/5 ML SDV (FOR ANES.) As Ordered ONE (09:24)
[2017-01-28] MEDS ORDERED: PROPOFOL 200 MG/20 ML VIAL As Ordered ONE (09:24)
[2017-01-28] MEDS ORDERED: ROCURONIUM BROMIDE 50 MG/5 ML VIAL/SYRINGE As Ordered ONE (09:24)
[2017-01-28] MEDS ORDERED: ONDANSETRON 4MG/2ML VIAL (J2405) As Ordered ONE (09:24)
[2017-01-28] MEDS ORDERED: dexameTHASONE 4 MG/ML 1ML VIAL (J1100) As Ordered ONE (09:24)
[2017-01-28] MEDS ORDERED: NEOSTIGMINE 1MG/ML 5 ML SYRINGE (J2710) As Ordered ONE (09:39)
[2017-01-28] MEDS ORDERED: GLYCOPYRROLATE INJ 0.2 MG/ML 2 ML VIAL As Ordered ONE (09:39)
[2017-01-28] MEDS ORDERED: LEVALBUTEROL 1.25 MG/0.5 ML CONCENTRATE NEB As Ordered ONE (11:40)
[2017-01-28] MEDS ORDERED: ONDANSETRON 4MG/2ML VIAL (J2405) IV PRN ×2 (11:45→12:15)
[2017-01-28] MEDS: LR 1,000 ML IV SCH (12:00)
[2017-01-28] MEDS ORDERED: ACETAMINOPHEN 325 MG/10.15 ML UDC GT PRN (12:00)
[2017-01-28] MEDS ORDERED: fentaNYL 100 MCG/2 ML INJECTION (J3010) IV PRN (12:15)
[2017-01-28] MEDS ORDERED: HYDROmorphone HCL 1 MG/ML SYRINGE (J1170) IV PRN (12:15)
[2017-01-28] MEDS ORDERED: PERCOCET 5MG/325MG TAB PO PRN (12:15)
[2017-01-28] MEDS ORDERED: LEVALBUTEROL 1.25 MG/0.5 ML CONCENTRATE NEB INH ONE (12:30)
[2017-01-28] MEDS: DIGOXIN 0.25 MG TAB PO SCH (16:56)
[2017-01-28] MEDS: POTASSIUM CHLORIDE 10% LIQ 20 MEQ/15 ML UDC PEG SCH (16:56)
[2017-01-28] MEDS: FUROSEMIDE 20 MG TAB PEG SCH (17:00)
[2017-01-29] VITALS (10 sets, daily range): BP systolic 99–132; BP diastolic 55–72
[2017-01-29] MEDS: HYDROcodone/APAP LIQUID 7.5-325MG 15ML UDC (LORTAB ELIXIR) PO PRN ×2 (04:13→09:30)
[2017-01-29 04:31] LABS: EOS % 0.3 % (0.0-3.0); LARGE UNSTAINED CELL # 0.1 K/mm3 (0.0-0.4); LYMPH # 0.8 K/mm3 (1.5-4.5); LYMPH % 9.5 % (24.0-44.0); MEAN CORPUSCULAR HEMOGLOBIN 32.8 pg (27.0-33.0); MEAN CORPUSCULAR VOLUME 96.4 fl (80.0-96.0); MONO # 0.5 K/mm3 (0.0-0.8); NEUTROPHILS # 6.3 K/mm3 (1.8-7.7); NEUTROPHILS % 82.2 % (36.0-66.0); PLATELET COUNT, AUTOMATED 175 k/mm3 (150-450); RED CELL DISTRIBUTION WIDTH 15.1 % (11.5-14.5); WHITE BLOOD COUNT 7.7 K/mm3 (4.0-10.0)
[2017-01-29 04:54] LABS: ANION GAP 5 MEQ/L (8-16); BLOOD UREA NITROGEN 19 MG/DL (7-18); CALCIUM LEVEL 8.6 MG/DL (8.8-10.2); CARBON DIOXIDE LEVEL 32 MEQ/L (21-32); CHLORIDE LEVEL 98 MEQ/L (98-107); GLOMERULAR FILTRATION RATE > 60.0 (>39); GLUCOSE, FASTING 174 MG/DL (83-110); SODIUM LEVEL 135 MEQ/L (136-145)
[2017-01-29 05:07] LABS: POTASSIUM SERUM 5.7 MEQ/L (3.5-5.1)
[2017-01-29] MEDS: LR 1,000 ML IV SCH (05:46)
[2017-01-29] MEDS: POTASSIUM CHLORIDE 10% LIQ 20 MEQ/15 ML UDC PEG SCH (09:30)
[2017-01-29] MEDS: DIGOXIN 0.25 MG TAB PO SCH (09:31)
[2017-01-29] MEDS: FUROSEMIDE 20 MG TAB PEG SCH (09:31)
[2017-01-29] MEDS: VALSARTAN 80 MG TAB (DIOVAN) PO SCH (09:34)
[2017-01-29] MEDS: SORBITOL 70% 30ML UNIT DOSE CUP PEG SCH (12:38)
--- NOTE | 2017-02-15 12:54 | RO ---
DATE OF PROCEDURE: 01/28/2017 PREOPERATIVE DIAGNOSES: Cholelithiasis, possibly previous history of cholecystitis. Attention to feeding tube. POSTOPERATIVE DIAGNOSES: Cholelithiasis, chronic cholecystitis. PROCEDURE PERFORMED 1. Laparoscopic cholecystectomy. 2. Diagnostic laparoscopy. 3. Change of gastrostomy tube to a GERONIMO-MORILLO button. SURGEON: Rigoberto Bee MD STONE [employer]TER METAL OPTICAL FRAMES: None. ANESTHESIA: General anesthesia. ESTIMATED BLOOD LOSS: Less than 20 mL. COMPLICATIONS: None. REMARKS: The patient tolerated procedure well. Ms. 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 Was found to have some evidence for cholelithiasis, possibly some cecitis or mild appendicitis. She improved with antibiotic therapy. She continues to have some mild symptoms, though generally has been stable since admission. After discussion with family, they have agreed on performing cholecystectomy to prevent recurrence. Consent was obtained from her daughter, who is the healthcare proxy. Also during our discussion, the daughter wants her feeding tube change to a GERONIMO-MORILLO button as she keeps on pulling the feeding tube, necessitating visits to the emergency room (ER). PROCEDURE NOTE: The patient was given a dose of Levaquin and Flagyl preoperatively. She was brought to the operating room, laid supine on the table. Compression boots placed on her lower extremities for deep venous thrombosis (DVT) prophylaxis. General endotracheal anesthesia started without any complication. Her abdomen prepped and draped in usual sterile fashion. Surgical time-out was performed, and we began our surgery. Initially, I tried to enter through the superior portion of the umbilicus but was not able to get adequate pneumoperitoneum. The patient has a previous lower midline incision. We then entered into the abdomen through an incision in the left upper quadrant. A Veress needle was inserted. CO2 insufflation started at a pressure of 15 mmHg. Using the same incision, the 5 mm Visiport was placed under direct vision of the laparoscope. On entry, there is visibly some omental adhesions over at a patient's subumbilical area. Another 5 mm port was placed over the patient's right subcostal line using a harmonic scalpel. The omental adhesions over the patient's subumbilical area anteriorly were lysed off the abdominal wall. Once adequate exposure done, a 12 mm port was placed over this area under direct vision. We switched views and placed the patient on a reverse Trendelenburg position, right side tilted up, to further expose the gallbladder. Two other working ports were placed along the right subcostal line at the lateral axillary line and one at the epigastric area. We then grabbed the fundus of the gallbladder, elevated this superiorly. The gallbladder was noted to be chronically thickened. There were a good amount of omental adhesions on the underside of the gallbladder, which was easily lysed with Bovie cautery. The infundibulum of the gallbladder was exposed. The peritoneum overlying the area was stripped off bluntly with a [place] instrument in the anterior end. Posterior borders of the gallbladder freed off to allow us to manipulate the neck and infundibulum of the gallbladder using Maryland instrument. The hepatocystic triangle was dissected off the surrounding structures. The cystic artery was promptly identified; and from this area, we worked on freeing up the surrounding structures around the infundibulum until we were able to identify the takeoff of the cystic duct from the gallbladder. We continued to skeletonize, going posteriorly behind the neck of the gallbladder until we met the critical view of safety, whereby only the duct and the artery was coursing through the neck of the gallbladder. Once this was achieved, clips were placed at the cystic artery, and the artery was divided. Another four clips were placed at the cystic duct, and the duct was divided. The rest of the gallbladder was then dissected free off the liver bed, and the gallbladder was removed intact. There were some bleeding points along the upper edge of the liver bed, which were easily controlled with cautery. The gallbladder was then delivered in an Endo Catch bag and through the 12 mm port site. We then insufflated. Took a look at the right lower quadrant area, where there were some more adhesions that we removed. We looked over where the cecum is. The terminal ileum was identified. I rotated the cecum, and the appendix was not identified, thus, most likely was taken out during her previous hysterectomy. There was still some mild thickening of the posterior lateral wall of the cecum, though no masses were identified or palpated. At this point, the abdomen was deflated. All ports were removed and the umbilical fascial defect repaired with 0 Vicryl in a mattress fashion. All of the skin incisions closed with 4-0 Monocryl subcuticular fashion. Steri-Strips and gauze dressings then placed. After dressing the area, I removed the previous gastrostomy tube and replaced this with a 20-[place] GERONIMO-MORILLO button. This went in easily. The balloon was inflated to 10 mL of saline. I flushed the new feeding tube and noted this to be flushing accordingly. Dry gauze dressing was placed under the GERONIMO-MORILLO button. The patient was awakened slowly and brought to the recovery room stable after successful extubation.
== END 2017-01-29 14:05 ==
LOC: M SDC 07:37 → M ICU 14:04 → M SDC 01-29 14:05
PROVIDERS: ATTEND Surgery
DX: K80.10 Calculus of gallbladder with chronic cholecystitis without obstruction (principal); Z43.1 Encounter for attention to gastrostomy; I10 Essential (primary) hypertension; I20.0 Unstable angina; I48.91 Unspecified atrial fibrillation; F32.9 Major depressive disorder, single episode, unspecified; J45.909 Unspecified asthma, uncomplicated; K21.9 Gastro-esophageal reflux disease without esophagitis; R32 Unspecified urinary incontinence; D64.9 Anemia, unspecified; E78.5 Hyperlipidemia, unspecified; G47.33 Obstructive sleep apnea (adult) (pediatric); I69.351 Hemiplegia and hemiparesis following cerebral infarction affecting right dominant side; E87.5 Hyperkalemia; Z79.899 Other long term (current) drug therapy; Z79.01 Long term (current) use of anticoagulants; Z88.0 Allergy status to penicillin; Z88.5 Allergy status to narcotic agent
CPT/HCPCS: 36415; 47562; 49450; 80048; 85025; 88304; J1100; J1956; J2405; J2710; J3010

== ENCOUNTER → 2017-02-01 | Outpatient (REF) | payer MEDICARE, MEDICAID ==
[~2017-02-01] MED LIST changes: +ATOR1TAB18 FT; -ATOR80TA59 FT; -CIPR-249 PO; +CIPR500T89 PO; -METR1TAB66 PO; +METR500T10 PO; -PROV100T25 FT; +PROV100T4 FT; -TUBE5INJ ID; +TUBE5INJ9 ID
[2017-02-01 10:34] LABS: MEAN CORPUSCULAR HEMOGLOBIN 32.4 pg (27.0-33.0); MEAN CORPUSCULAR HGB CONC 33.4 g/dl (32.0-36.5); MEAN CORPUSCULAR VOLUME 97.1 fl (80.0-96.0); WHITE BLOOD COUNT 5.7 K/mm3 (4.0-10.0)
[2017-02-01 10:57] LABS: ANION GAP 6 MEQ/L (8-16); BLOOD UREA NITROGEN 15 MG/DL (7-18); CALCIUM LEVEL 8.5 MG/DL (8.8-10.2); CARBON DIOXIDE LEVEL 34 MEQ/L (21-32); CHLORIDE LEVEL 97 MEQ/L (98-107); CREATININE FOR GFR 0.45 MG/DL (0.55-1.02); GLOMERULAR FILTRATION RATE > 60.0 (>39); GLUCOSE, FASTING 130 MG/DL (83-110); POTASSIUM SERUM 4.4 MEQ/L (3.5-5.1); SODIUM LEVEL 137 MEQ/L (136-145)
== END ==
PROVIDERS: ATTEND Internal Medicine
DX: D64.9 Anemia, unspecified (principal)

== ENCOUNTER → 2017-05-04 | Outpatient (REF) | payer MEDICARE, MEDICAID ==
[~2017-05-04] MED LIST changes: -ATOR1TAB18 FT; +ATOR80TA59 FT; +CIPR-249 PO; -CIPR500T89 PO; +METR1TAB66 PO; -METR500T10 PO; +PROV100T25 FT; -PROV100T4 FT; +TUBE5INJ ID; -TUBE5INJ9 ID
[2017-05-04 09:32] LABS: MEAN CORPUSCULAR HEMOGLOBIN 32.1 pg (27.0-33.0); MEAN CORPUSCULAR HGB CONC 32.9 g/dl (32.0-36.5); MEAN CORPUSCULAR VOLUME 97.5 fl (80.0-96.0); WHITE BLOOD COUNT 7.4 10^3/uL (4.0-10.0)
[2017-05-04 10:35] LABS: ANION GAP 8 MEQ/L (8-16); BLOOD UREA NITROGEN 15 MG/DL (7-18); CALCIUM LEVEL 8.8 MG/DL (8.8-10.2); CARBON DIOXIDE LEVEL 33 MEQ/L (21-32); CHLORIDE LEVEL 96 MEQ/L (98-107); CREATININE FOR GFR 0.45 MG/DL (0.55-1.02); DIGOXIN LEVEL 0.7 NG/ML (0.5-2.0); GLOMERULAR FILTRATION RATE > 60.0 (>39); GLUCOSE, FASTING 96 MG/DL (83-110); POTASSIUM SERUM 4.6 MEQ/L (3.5-5.1); SODIUM LEVEL 137 MEQ/L (136-145)
== END ==
PROVIDERS: ATTEND Internal Medicine
DX: I48.91 Unspecified atrial fibrillation (principal)

== ENCOUNTER → 2017-07-07 | Outpatient (REF) | payer MEDICARE, MEDICAID | PROVIDERS: ATTEND Internal Medicine | DX: R07.9 Chest pain, unspecified (principal) ==

== ENCOUNTER → 2017-07-27 | Outpatient (REF) | payer MEDICARE, MEDICAID ==
[2017-07-27 11:17] LABS: MEAN CORPUSCULAR HEMOGLOBIN 31.4 pg (27.0-33.0); MEAN CORPUSCULAR HGB CONC 33.2 g/dl (32.0-36.5); MEAN CORPUSCULAR VOLUME 94.6 fl (80.0-96.0); PLATELET COUNT, AUTOMATED 253 10^3/uL (150-450); RED CELL DISTRIBUTION WIDTH 15.1 % (11.5-14.5); WHITE BLOOD COUNT 6.5 10^3/uL (4.0-10.0)
[2017-07-27 11:44] LABS: ANION GAP 6 MEQ/L (8-16); BLOOD UREA NITROGEN 15 MG/DL (7-18); CALCIUM LEVEL 8.4 MG/DL (8.8-10.2); CARBON DIOXIDE LEVEL 34 MEQ/L (21-32); CHLORIDE LEVEL 97 MEQ/L (98-107); GLOMERULAR FILTRATION RATE > 60.0 (>39); GLUCOSE, FASTING 77 MG/DL (83-110); POTASSIUM SERUM 4.5 MEQ/L (3.5-5.1); SODIUM LEVEL 137 MEQ/L (136-145)
== END ==
PROVIDERS: ATTEND Internal Medicine
DX: I50.9 Heart failure, unspecified (principal)

== ENCOUNTER → 2017-08-03 | Outpatient (REF) | payer MEDICARE, MEDICAID ==
[2017-08-03 09:30] LABS: MEAN CORPUSCULAR HEMOGLOBIN 31.8 pg (27.0-33.0); MEAN CORPUSCULAR HGB CONC 33.1 g/dl (32.0-36.5); MEAN CORPUSCULAR VOLUME 96.2 fl (80.0-96.0); PLATELET COUNT, AUTOMATED 244 10^3/uL (150-450); RED CELL DISTRIBUTION WIDTH 15.1 % (11.5-14.5); WHITE BLOOD COUNT 5.9 10^3/uL (4.0-10.0)
== END ==
DX: I48.91 Unspecified atrial fibrillation (principal)
CPT/HCPCS: 85027

== ENCOUNTER → 2017-09-27 | Outpatient (REF) | payer MEDICARE, MEDICAID ==
[2017-09-27 11:37] LABS: DIGOXIN LEVEL 0.7 NG/ML (0.5-2.0)
== END ==
DX: I48.91 Unspecified atrial fibrillation (principal)
CPT/HCPCS: 80162

== ENCOUNTER → 2017-10-10 | Outpatient (REF) | payer MEDICARE, MEDICAID | DX: R05 Cough (principal); R09.02 Hypoxemia ==